=== PATIENT | female | born 1945 | race Caucasian/White ===

== ENCOUNTER → 2017-01-24 | Outpatient (CLI) | payer MEDICARE, OTHER ==
[2017-01-24 13:15] LABS: FREE T4 1.11 NG/DL (0.76-1.46)
== END ==
LOC: M LAB 11:39
PROVIDERS: ATTEND Internal Medicine Gastroenterology
DX: K58.2 Mixed irritable bowel syndrome (principal)

== ENCOUNTER → 2017-01-25 | Outpatient (REF) | payer MEDICARE, OTHER | LOC: M LAB REF 10:17 | PROVIDERS: ATTEND Internal Medicine Gastroenterology | DX: K58.2 Mixed irritable bowel syndrome (principal) ==

== ENCOUNTER → 2017-02-22 | Outpatient (CLI) | payer MEDICARE, OTHER ==
[~2017-02-22] VITALS: Ht 160 cm; Wt 51.3 kg
[~2017-02-22] MED LIST: ALLE180T33 PO; CITRTAB13 PO; GLUC500T53 PO; L-ME1TAB PO; LEVO25TA5 PO; MULTCAP11 PO; NS 1,000 ML IV ONE; PROPOFOL 200 MG/20 ML VIAL As Ordered ONE; SING10TA32 PO; VITA1CAP7 PO; [UNRECOGNIZED DRUG - OTHER] PO
--- NOTE | 2017-02-22 10:42 | ROOR ---
Patient Name: Irina Metz Procedure Date: 02/22/2017 9:55 AM Date of : 1945 Age: 71 Room: [facility] Gender: Female Note Status: Finalized Procedure: Colonoscopy Indications: Follow-up of irritable bowel syndrome, Change in bowel habits, Incidental constipation noted, Incidental diarrhea noted Providers: Aaron SAHU MD Referring MD: CURTIS MCNEAL MD Requesting Provider: Medicines: Monitored Anesthesia Care Complications: No immediate complications. Procedure: Pre-Anesthesia Assessment: - The heart rate, respiratory rate, oxygen saturations, blood pressure, adequacy of pulmonary ventilation, and response to care were monitored throughout the procedure. The Colonoscope was introduced through the anus and advanced to the cecum, identified by appendiceal orifice and ileocecal valve. The colonoscopy was performed without difficulty. The patient tolerated the procedure well. The quality of the bowel preparation was good. Findings: The perianal and digital rectal examinations were normal. (Exam: Complete, Prep: Good or Excellent.) A frond-like/villous and polypoid non-obstructing medium-sized mass was found in the proximal ascending colon. The mass was non-circumferential. The mass measured four cm in length. In addition, its diameter measured thirty mm. The polyp was removed with a piecemeal technique using a hot snare. Polyp resection was incomplete, and the resected tissue was partially retrieved. The exam was otherwise without abnormality on direct and retroflexion views. Biopsies for histology were taken with a cold forceps from the entire colon for evaluation of microscopic colitis. Impression: - Rule out malignancy, 3x4 cm polypoid tumor in the proximal ascending colon. Snare cautery piecemeal resection attempted. About 1/3 of this lesion was resected. INCOMPLETE resection. - The examination was otherwise normal on direct and retroflexion views. - Biopsies were taken with a cold forceps from the entire colon for evaluation of microscopic colitis. Recommendation: - Await pathology results. - If the pathology report is malignant, then refer to a surgeon. - (If pathology is benign, consideration may be given to serial colonoscopy with repeat attempts of piecemeal resection over time. I do note some mucosal infiltration of the fold under the lesion, and surgery may still be a better option.--I will discuss with you on follow up appointment in my office). Aaron Sahu MD Aaron SAHU MD 02/22/2017 10:42:13 AM This report has been signed electronically. Number of Addenda: 0 Note Initiated On: 02/22/2017 9:55 AM Estimated Blood Loss: Estimated blood loss: none.
[2017-02-22 10:55] VITALS: BP 117/66
== END | disposition home or self-care (01) ==
LOC: M OPP 08:38
PROVIDERS: ATTEND Internal Medicine Gastroenterology
DX: K58.9 Irritable bowel syndrome, unspecified (principal); R19.4 Change in bowel habit; C18.9 Malignant neoplasm of colon, unspecified; E78.5 Hyperlipidemia, unspecified; R19.7 Diarrhea, unspecified; K59.00 Constipation, unspecified; Z78.0 Asymptomatic menopausal state; J45.909 Unspecified asthma, uncomplicated; Z88.8 Allergy status to other drugs, medicaments and biological substances; Z88.0 Allergy status to penicillin; Z88.2 Allergy status to sulfonamides; Z80.52 Family history of malignant neoplasm of bladder; Z79.899 Other long term (current) drug therapy

== ENCOUNTER → 2017-02-25 | Outpatient (CLI) | payer MEDICARE, OTHER ==
[~2017-02-25] MED LIST changes: -NS 1,000 ML IV ONE; -PROPOFOL 200 MG/20 ML VIAL As Ordered ONE
[2017-02-25 08:58] LABS: BASO % 0.5 % (0.0-1.0); EOS # 0.1 K/mm3 (0.0-0.50); EOS % 2.5 % (0.0-3.0); LARGE UNSTAINED CELL # 0.1 K/mm3 (0.0-0.4); LARGE UNSTAINED CELL % 1.5 % (0.0-4.0); LYMPH # 1.3 K/mm3 (1.5-4.5); LYMPH % 24.5 % (24.0-44.0); MEAN CORPUSCULAR HEMOGLOBIN 33.8 pg (27.0-33.0); MEAN CORPUSCULAR HGB CONC 32.8 g/dl (32.0-36.5); MEAN CORPUSCULAR VOLUME 103.1 fl (80.0-96.0); MONO # 0.3 K/mm3 (0.0-0.8); MONO % 6.1 % (0.0-5.0); NEUTROPHILS # 3.4 K/mm3 (1.8-7.7); NEUTROPHILS % 64.8 % (36.0-66.0); PLATELET COUNT, AUTOMATED 246 k/mm3 (150-450); RED CELL DISTRIBUTION WIDTH 12.2 % (11.5-14.5); WHITE BLOOD COUNT 5.2 K/mm3 (4.0-10.0)
[2017-02-25 10:08] LABS: ALBUMIN 3.7 GM/DL (3.2-5.2); ALBUMIN/GLOBULIN RATIO 1.09 (1.00-1.93); ALKALINE PHOSPHATASE 84 U/L (45-117); ALT/SGPT 19 U/L (12-78); ANION GAP 7 MEQ/L (8-16); AST/SGOT 16 U/L (15-37); BILIRUBIN,TOTAL 0.4 MG/DL (0.2-1.0); BLOOD UREA NITROGEN 12 MG/DL (7-18); CALCIUM LEVEL 8.9 MG/DL (8.8-10.2); CARBON DIOXIDE LEVEL 29 MEQ/L (21-32); CHLORIDE LEVEL 107 MEQ/L (98-107); CHOLESTEROL LEVEL 262 MG/DL (<200); CREATININE FOR GFR 0.87 MG/DL (0.55-1.02); FREE T4 1.14 NG/DL (0.76-1.46); GLOMERULAR FILTRATION RATE > 60.0 (>39); GLUCOSE, FASTING 89 MG/DL (83-110); POTASSIUM SERUM 3.8 MEQ/L (3.5-5.1); SODIUM LEVEL 143 MEQ/L (136-145); TOTAL PROTEIN 7.1 GM/DL (6.4-8.2); TRIGLYCERIDES LEVEL 86 MG/DL (<150)
== END ==
LOC: M LAB 08:21
PROVIDERS: ATTEND Emergency Medicine
DX: Z00.00 Encounter for general adult medical examination without abnormal findings (principal); E03.9 Hypothyroidism, unspecified; M79.7 Fibromyalgia

== ENCOUNTER → 2017-03-15 | Outpatient (CLI) | payer MEDICARE, OTHER ==
[~2017-03-15] MED LIST changes: +TURM500C3 PO
--- NOTE | 2017-03-15 19:56 | ECGEPIP ---
Stationary ECG Study [facility] Test Date: 2017-03-15 Pat Name: NATHANIEL MOULTON Department: Room: - Gender: F [employer] [place]: : 1945 Requested By: Zaid Denney Order Number: [id number] Reading MD: Aaron Donis Measurements Intervals [place] Rate: 70 P: 42 MA: 119 QRS: 73 QRSD: 84 T: 76 QT: 370 QTc: 400 Interpretive Statements SINUS RHYTHM WITH SHORT MA INTERVAL No prior ECG available for comparison at the time of interpretation. Electronically Signed On 03-15-2017 19:56:08 EDT by Aaron Donis
== END ==
LOC: M EKG 09:57
PROVIDERS: ATTEND Anesthesiology
DX: Z01.818 Encounter for other preprocedural examination (principal); J45.909 Unspecified asthma, uncomplicated; K58.9 Irritable bowel syndrome, unspecified; G25.81 Restless legs syndrome; E78.00 Pure hypercholesterolemia, unspecified

== ENCOUNTER 2017-03-21 07:30 | Inpatient (IN) | payer MEDICARE, OTHER ==
--- NOTE | 2017-03-20 15:24 | HPE ---
DATE OF ADMISSION: 03/21/2017 ADMITTING DIAGNOSIS: Adenocarcinoma of the proximal ascending colon. HISTORY OF PRESENT ILLNESS: The patient is a very pleasant 71-year-old woman who had undergone a colonoscopy by Dr. Moore on 02/22/2017. This was reported for irritable bowel syndrome with a change in her bowel habits with some incidental constipation and some incidental diarrhea. At her colonoscopy, she was found to have a frond like/villous and polypoid nonobstructing medium sized mass in the proximal ascending colon. The mass was estimated at 4 cm in length. Portions of this mass were resected and portions of the resected tissue were recovered. Her pathology revealed fragments of adenocarcinoma, moderately differentiated, invading at least to the submucosa, in a background of villous adenoma. She was referred to me for further treatment. She was seen in the office on March 05 and is admitted now to undergo a laparoscopic right hemicolectomy. The patient reports that there is no family history of colorectal cancer with possible exception of a half-sister who may have had a colon malignancy, but her history is unclear. The patient denies any rectal bleeding. She is having no abdominal pain acutely, but has had some right lower quadrant discomfort for years. ALLERGIES: The patient reports allergies to PENICILLIN, SULFA, SELDINE, VERAPAMIL, BECONASE AQ and OPIOIDS. MEDICATIONS: Include: - levothyroxine 25 mcg by mouth daily - cholecalciferol 5000 units by mouth daily - Citracal maximum 315/250 mg one tablet by mouth twice daily - curcuma longa (tumeric extra) 500 mg capsules daily - fexofenadine 180 mg by mouth daily - glucosamine hydrochloride 500 mg tablets, one by mouth weekly - L-methylfolate calcium 15 mg tablets, one by mouth daily - montelukast 10 mg by mouth daily - multivitamin one capsule by mouth twice daily - PhytoCort one tablet by mouth daily MEDICAL HISTORY: Significant for asthma. She has history of irritable bowel syndrome. 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 She has a history of hypercholesterolemia. She has recurrent history of colon cancer and has hypothyroid. SURGICAL HISTORY: Significant for a section in 1979. She has had shoulder surgery on the left in 2003 and shoulder surgery on the right in 2005. She underwent a colonoscopy more than 10 years ago and then again recently in February 2017. FAMILY HISTORY: The patient's father had Mary's granulomatosis. The patient's mother suffered from Alzheimer's disease. SOCIAL HISTORY: The patient is a nonsmoker and she denies any alcohol use. She is , but does not wish to burden her with her diagnosis of cancer and is planning to proceed with the surgery and only let him know after the fact. PRIMARY CARE PROVIDER: Her regular physician is Dr. Shaw Velasquez. REVIEW OF SYSTEMS: The patient denies any chills or fever or any weight gain or weight loss. She denies any symptoms of blurred vision or double vision. She has no history of seizure, stroke or TIA. She has had no chest pain or palpitations. She denies any history of cough, wheezing or sputum production. She has had some intermittent diarrhea and sometimes has constipation. She denies any rectal bleeding. She has had no dysuria or hematuria. She denies any significant bone or joint issues at this time. There is no history of deep venous thrombosis (DVT) or pulmonary embolism. She denies any history of anxiety or depression. PHYSICAL EXAMINATION: Reveals a height of 63 inches with a weight of approximately 53 kg, yielding a BMI of approximately 21. The patient is alert, oriented and cooperative. Skin: Is warm and dry. Sclerae are anicteric. Mucous membranes are moist. Neck is supple without mass or bruit. Heart: Exam shows a regular rate and rhythm. The lungs are clear to auscultation bilaterally. The abdomen is thin, flat, soft, and nontender. No masses appreciated. She has an old scar across the suprapubic area. There is no sign of hernia. Her rectal exam is deferred, given her recent colonoscopy reporting a negative for rectal examination. LABORATORY: Laboratory studies on February 25 the patient had some blood work done. She had a CBC showing a white count of 5.2 with a hemoglobin of 13, hematocrit of 41% and a platelet count of 246,000. The differential count was normal. Chemistry profile showed normal electrolytes with BUN of 12, creatinine 0.87 and glucose of 89. A TSH was 1.76 and a free T4 was 1.14. The patient has not had any recent imaging studies. IMPRESSION: 1. Adenocarcinoma arising in a villous adenoma of the ascending colon. 2. Asthma. 3. Hypercholesterolemia. 4. Hypothyroidism. 5. Irritable bowel syndrome. PLAN: The patient is being admitted on March 21 to undergo a laparoscopic right hemicolectomy. The patient is to perform and antibiotic and mechanical bowel preparation on March 20. This would include use of Suprep with neomycin and Flagyl for antibiotic coverage. She will receive a dose of Invanz preoperatively. She will also receive a by mouth dose of Entereg preoperatively. She will have a Byrne catheter placed in the operating room. Thromboembolism deterrents (TEDs) and sequentials will be used intraoperatively for deep venous thrombosis (DVT) prophylaxis. The patient was counseled regarding the surgery for a laparoscopic right hemicolectomy. She was counseled regarding the nature of the procedure. Risks include, but are not limited to bleeding, infection, scarring, adverse drug reaction, need for further surgery, injury to internal organs, hernia formation, and anastomotic leak. The patient had an opportunity to ask questions. She was counseled that her hospital stay would likely be in the two to five day range. She expressed a desire to proceed with the surgery and will present on March 21 for her procedure.
[~2017-03-21] VITALS: Ht 160 cm; Wt 52.2 kg
[2017-03-21] MEDS ORDERED: LR 1,000 ML IV SCH ×2 (09:15→14:45)
[2017-03-21] MEDS ORDERED: LR 1,000 ML IV ONE (09:15)
[2017-03-21] MEDS ORDERED: ERTAPENEM SODIUM 1 GM in NS MINI-BAG PLUS 50 ML IV ONE (10:00)
[2017-03-21] MEDS ORDERED: ALVIMOPAN 12 MG CAPSULE (ENTEREG) PO ONE (10:00)
[2017-03-21] MEDS ORDERED: BUPIVACAINE HCL 0.25% 30 ML VIAL As Ordered ONE (10:46)
[2017-03-21] MEDS ORDERED: ROCURONIUM BROMIDE 50 MG/5 ML VIAL As Ordered ONE ×2 (11:49→12:07)
[2017-03-21] MEDS ORDERED: LIDOCAINE 2% INJ 100 MG/5 ML SDV (FOR ANES.) As Ordered ONE (11:49)
[2017-03-21] MEDS ORDERED: PROPOFOL 200 MG/20 ML VIAL As Ordered ONE (11:49)
[2017-03-21] MEDS ORDERED: fentaNYL 250 MCG/5 ML INJECTION (J3010) As Ordered ONE (11:49)
[2017-03-21] MEDS ORDERED: MIDAZOLAM INJ 2 MG/2 ML VIAL (J2250) As Ordered ONE (11:49)
[2017-03-21] MEDS ORDERED: PHENYLephrine HCL 500 MCG/5 ML (100MCG/ML) SYRINGE (J2370) As Ordered ONE ×2 (12:00→13:20)
[2017-03-21] MEDS ORDERED: DESFLURANE 240 ML INHALANT As Ordered ONE (12:48)
[2017-03-21] MEDS ORDERED: HYDROmorphone HCL 2 MG/ML 1ML VIAL (J1170) As Ordered ONE (12:54)
[2017-03-21] MEDS ORDERED: GLYCOPYRROLATE INJ 0.2 MG/ML 2 ML VIAL As Ordered ONE (13:57)
[2017-03-21] MEDS ORDERED: NEOSTIGMINE 1MG/ML 5 ML SYRINGE (J2710) As Ordered ONE (13:57)
[2017-03-21] MEDS ORDERED: IBUPROFEN 600 MG TAB PO PRN (14:30)
[2017-03-21] MEDS ORDERED: ACETAMINOPHEN TAB 650MG DOSE (2X325MG) PO PRN (14:30)
[2017-03-21] MEDS ORDERED: PERCOCET 5MG/325MG TAB PO PRN (14:45)
[2017-03-21] MEDS ORDERED: METOCLOPRAMIDE INJ 10MG/2ML VIAL (J2765) IV PRN (14:45)
[2017-03-21] MEDS ORDERED: fentaNYL 100 MCG/2 ML INJECTION (J3010) IV PRN (14:45)
[2017-03-21] MEDS ORDERED: ONDANSETRON 4MG/2ML VIAL (J2405) IV PRN (14:45)
[2017-03-21 15:50] VITALS: BP 116/55
[2017-03-21] MEDS ORDERED: ONDANSETRON 4MG/2ML VIAL (J2405) As Ordered ONE (15:57)
[2017-03-21] MEDS: ONDANSETRON 4MG/2ML VIAL (J2405) IV PRN ×2 (16:00→23:11)
[2017-03-21] MEDS: LR 1,000 ML IV SCH (16:05)
[2017-03-21 16:20] VITALS: BP 116/56
[2017-03-21 16:50] VITALS: BP 110/53
[2017-03-21] MEDS: METOCLOPRAMIDE INJ 10MG/2ML VIAL (J2765) IV PRN (17:25)
[2017-03-21 17:50] VITALS: BP 102/50
[2017-03-21 18:50] VITALS: BP 105/55
[2017-03-21] MEDS: ALVIMOPAN 12 MG CAPSULE (ENTEREG) PO SCH (20:08)
--- NOTE | 2017-03-21 21:46 | RO ---
DATE OF PROCEDURE: 03/21/2017 PREOPERATIVE DIAGNOSIS: Ascending colon carcinoma. POSTOPERATIVE DIAGNOSIS: Ascending colon carcinoma. OPERATIVE PROCEDURE: Laparoscopic right hemicolectomy. SURGEON: Arben Hawkins MD POULTRY HELPER: Dr. Payan ANESTHESIA: General. INDICATIONS FOR PROCEDURE: The patient is a 71-year-old woman who had undergone a recent colonoscopy for some complaints of diarrhea and occasional constipation. It had also been greater than 10 years since her most recent prior colonoscopy. She was found to have a lesion in the proximal ascending colon. Portions of this were removed and revealed foci of adenocarcinoma in a background of villous adenoma. The patient is now admitted to undergo a laparoscopic right hemicolectomy. OPERATIVE PROCEDURE: The patient was placed supine on the operating table. She was placed under general endotracheal anesthesia. TEDs and sequentials were utilized. A Byrne catheter was inserted. The patient's abdomen was prepped and draped in a sterile fashion. 0.25% Marcaine was infiltrated. A short infraumbilical midline incision was made. This was deepened through the fascia and the peritoneum was opened bluntly. A Hannah cannula was inserted and the abdomen was insufflated with carbon dioxide gas. Initial examination showed a normal-appearing liver. Visualized portions of the small and large bowel appeared normal. A 5 mm trocar was placed in the right lower quadrant just to the right of the midline and a second 5 mm trocar was placed in the left lower quadrant. Graspers were inserted. The patient was rolled to the left and tilted to a Trendelenburg position. The omentum was pulled away from the cecum and ascending colon. Inspection revealed that she had a very redundant transverse colon. There were some adhesions of the ascending colon to the anterior abdominal wall. Using the Harmonic scalpel, the adhesions of the right colon to the anterior abdominal wall were divided. The lateral attachments of the cecum and ascending colon were then divided. The colon was rotated and mobilized medially through the avascular plane. The appendix and terminal ileum were divided. The colon was mobilized all the way up to the most distal ascending colon. I then selected a point in the proximal transverse colon for division of the bowel. This point was selected to leave the middle colic vessels intact. Some of the omentum was elevated off of the transverse colon. A small portion was left attached on the right and this was divided. The colon mesentery was opened and the colon was transected with two firings of the [place] stapler with a green load. The colon mesentery was then divided down to its base using the Harmonic scalpel. The dissection then moved to the right completely exposing the retroperitoneal portion of the duodenum. The attachments beneath the liver were divided and the hepatic flexure reflected inferiorly. At this point, the mesentery of the terminal ileum was opened. Approximately 5-7 cm of the terminal ileum was left attached to the colon. The terminal ileum was divided with the [place] stapler. The division of the ileal mesentery was carried distally and the cecum and appendix were mobilized anteriorly from the retroperitoneum. The right colon mesentery was then divided medially. The ileocolic vessel was divided carefully using the Harmonic scalpel with no blood loss. The final attachments of the right colon mesentery were divided and the specimen was freed. Inspection revealed no evidence of significant bleeding in the operative area. The terminal ileum and distal transverse colon appeared to be quite mobile to facilitate an anastomosis. Graspers were therefore placed through the trocar sites with one holding the end of the terminal ileum, one holding the specimen and the third holding the end of the transverse colon. I would note that the third 5 mm trocar was placed in the left upper quadrant during the course of dissection to provide an additional grasper during mobilization of transverse colon. The abdomen was deflated. The Hannah port was removed and the skin incision at the infraumbilical site was extended to 4-5 cm in length. A Mobius retractor was placed. The specimen was delivered and initially set aside for later inspection. The end of the terminal ileum and transverse colon were brought through the retractor. A stapled anastomosis was performed with a linear cutter 55 stapler and firing of the [place] stapler with a green load. The anastomosis was reinforced with multiple simple inverting sutures of #3-0 Vicryl. The anastomosis was irrigated. There was no bleeding and no sign of leak. This was then reduced into the abdomen. The Mobius retractor was removed. At this point, the surgical team all changed gown and gloves and brought in the set of sterile closing instruments. The peritoneum of the infraumbilical incision was closed with a running suture of #0 chromic. The fascia was closed with interrupted simple sutures of #1 Vicryl. The abdomen was then reinflated. Some small bowel that was positioned posterior to the anastomosis was pulled out from beneath the anastomosis to allow this to lie against the retroperitoneum. There was no sign of bleeding. The right side of the abdomen was inspected and there was no sign of any bleeding. The patient was placed in a flat position and the abdomen was deflated. The remaining trocars were removed. The incisions were all closed with buried Vicryl sutures and Steri-Strips. Light dressings were applied. The patient tolerated the procedure well without apparent complication. The surgical specimen was opened off the field. This revealed an approximately 3-4 cm long x 1 cm wide raised irregular area in the proximal ascending colon. This appeared to have two puckered area and it was unclear if these represented healing areas of her biopsy or whether these might represent areas of cancer. The specimen was placed in formalin for transfer to pathology. The patient was awakened in the operating room, extubated and moved to the recovery room in stable condition.
[2017-03-21 22:00] VITALS: BP 105/55
[2017-03-21] MEDS: ENOXAPARIN 40 MG/0.4 ML SYRINGE (J1650) SC SCH (23:00)
[2017-03-22 02:00] VITALS: BP 116/56
[2017-03-22] MEDS: METOCLOPRAMIDE INJ 10MG/2ML VIAL (J2765) IV PRN ×3 (02:43→19:13)
[2017-03-22] MEDS: LR 1,000 ML IV SCH ×2 (02:51→17:17)
[2017-03-22 06:00] VITALS: BP 111/54
[2017-03-22] MEDS: LEVOTHYROXINE 0.025 MG TAB (25 MCG) PO SCH (06:43)
[2017-03-22 10:00] VITALS: BP 121/59
[2017-03-22] MEDS: ALVIMOPAN 12 MG CAPSULE (ENTEREG) PO SCH ×2 (10:01→21:32)
[2017-03-22] MEDS: FEXOFENADINE 60 MG TAB PO SCH (10:01)
[2017-03-22] MEDS: ONDANSETRON 4MG/2ML VIAL (J2405) IV PRN (10:01)
[2017-03-22 13:25] VITALS: BP 138/67
[2017-03-22 18:00] VITALS: BP 121/58
[2017-03-22 22:00] VITALS: BP 124/60
[2017-03-22] MEDS: ENOXAPARIN 40 MG/0.4 ML SYRINGE (J1650) SC SCH (23:00)
[2017-03-23] VITALS (7 sets, daily range): BP systolic 112–135; BP diastolic 56–72
[2017-03-23] MEDS: METOCLOPRAMIDE INJ 10MG/2ML VIAL (J2765) IV PRN (00:41)
[2017-03-23] MEDS: LEVOTHYROXINE 0.025 MG TAB (25 MCG) PO SCH (05:42)
[2017-03-23] MEDS: ALVIMOPAN 12 MG CAPSULE (ENTEREG) PO SCH (09:00)
[2017-03-23] MEDS: FEXOFENADINE 60 MG TAB PO SCH (09:57)
[2017-03-24 06:00] VITALS: BP 112/56
[2017-03-24] MEDS: LEVOTHYROXINE 0.025 MG TAB (25 MCG) PO SCH (06:03)
[2017-03-24] MEDS: FEXOFENADINE 60 MG TAB PO SCH (08:49)
[2017-03-24 10:00] VITALS: BP 126/57
== END 2017-03-24 12:17 | disposition home or self-care (01) | DRG 330 ==
LOC: M OR 08:55 → M MSPAV 15:41
PROVIDERS: ADMIT Surgery; ATTEND Surgery
PROC: 0DBL4ZZ Excision of Transverse Colon, Percutaneous Endoscopic Approach (ICD-10-PCS; 2017-03-21)
PROC: 0DBK4ZZ Excision of Ascending Colon, Percutaneous Endoscopic Approach (ICD-10-PCS; principal; 2017-03-21 10:40)
DX: C18.2 Malignant neoplasm of ascending colon (principal); E72.12 Methylenetetrahydrofolate reductase deficiency; K58.9 Irritable bowel syndrome, unspecified; Z88.0 Allergy status to penicillin; Z88.2 Allergy status to sulfonamides; Z88.8 Allergy status to other drugs, medicaments and biological substances; Z79.899 Other long term (current) drug therapy; J45.909 Unspecified asthma, uncomplicated; E03.9 Hypothyroidism, unspecified; E78.00 Pure hypercholesterolemia, unspecified

== ENCOUNTER → 2017-04-19 | Outpatient (REF) | payer MEDICARE, OTHER ==
[2017-04-19 13:28] LABS: INR 0.89
== END ==
LOC: M LAB REF 12:48
PROVIDERS: ATTEND Internal Medicine Medical Oncology
DX: C18.9 Malignant neoplasm of colon, unspecified (principal)

== ENCOUNTER → 2017-04-24 | Outpatient (CLI) | payer MEDICARE, OTHER ==
--- NOTE | 2017-04-25 12:19 | REP ---
PET/CT: HISTORY: Initial staging colon carcinoma. The right hemicolectomy done in 03/22/2017 showed moderately differentiated adenocarcinoma extending into the pericolonic adipose tissue. COMPARISONS: No comparison study. TECHNIQUE: 1 hour 28 minutes following the intravenous injection of a 10.5 mCi dose of F-18 FDG, three-dimensional PET scintigraphy is acquired from the skull base to the proximal thighs. Triplanar noncontrast CT scanning is acquired through the same anatomic range for attenuation correction, and image registration with scan parameters optimized to minimize radiation exposure to the patient. PET scintigraphy and CT datasets were fused and displayed on a workstation with multiplanar and projection display capability. PET/CT FINDINGS: There is a linear area of low level mildly hypermetabolic uptake in the anterior abdominal wall incision below the level of the umbilicus. Maximum SUV value in this region is 3.3. This may reflect postoperative inflammation. No other abnormal abdominal or pelvic hypermetabolic uptake is seen. No hepatic focus is seen. A suture line is seen in the right colon. No abnormal hypermetabolic uptake is seen within the chest. No pulmonary nodule or pulmonary hypermetabolic uptake is appreciated. Head and neck soft tissues are unremarkable. No skeletal hypermetabolic uptake is seen. IMPRESSION: Mild zone of linear hypermetabolic uptake in the infraumbilical abdominal wall midline in the laparotomy incision. This is most compatible with postoperative inflammation. Otherwise negative PET scintigraphy. Signed by Alex Lamb MD 04/25/2017 05:14 P
== END ==
LOC: M PLARAD 07:34
PROVIDERS: ATTEND Internal Medicine Medical Oncology
DX: C18.9 Malignant neoplasm of colon, unspecified (principal)
CPT/HCPCS: 78815; 88300; A9552

== ENCOUNTER → 2017-04-24 | Outpatient (REF) | payer MEDICARE, OTHER | LOC: M LAB REF 09:00 | PROVIDERS: ATTEND Internal Medicine Medical Oncology | DX: C18.9 Malignant neoplasm of colon, unspecified (principal) ==

== ENCOUNTER → 2017-04-26 | Outpatient (CLI) | payer MEDICARE, OTHER ==
[~2017-04-26] MED LIST changes: +ISOVUE-370 76% 100ML VIAL (Q9967) As Ordered ONE
--- NOTE | 2017-04-26 17:10 | REP ---
Clinical: Colon cancer for staging. Technique: Axial contrast enhanced images from the thoracic inlet to the upper abdomen using 100 ml Isovue 370 intravenous contrast material with coronal and sagittal re-formations. Findings: The bilateral lung rondon are well-aerated, symmetric and clear. No pulmonary parenchymal consolidation, nodule or mass lesion. No pleural effusion/reaction or pneumothorax. Tracheobronchial tree is patent. No axillary, hilar, or mediastinal adenopathy. Mediastinum demonstrates normal thoracic aorta, pulmonary vasculature and heart/pericardium. The surrounding musculoskeletal structures without focal osseous abnormality. Limited evaluation of the upper abdomen demonstrates normal bilateral adrenal glands. Impression: Normal contrast enhanced chest CT. No acute mediastinal or pleuroparenchymal process. Signed by Elliott Arguelles MD 04/26/2017 05:01 P
== END ==
LOC: M RAD 16:01
PROVIDERS: ATTEND Internal Medicine Medical Oncology
DX: C18.9 Malignant neoplasm of colon, unspecified (principal)
CPT/HCPCS: 71260; Q9967

== ENCOUNTER → 2017-07-30 | Outpatient (REF) | payer MEDICARE, OTHER ==
[~2017-07-30] MED LIST changes: -ISOVUE-370 76% 100ML VIAL (Q9967) As Ordered ONE
== END ==
LOC: M LAB REF 17:33
PROVIDERS: ATTEND Internal Medicine Medical Oncology
DX: C18.9 Malignant neoplasm of colon, unspecified (principal)

== ENCOUNTER → 2017-10-30 | Outpatient (REF) | payer MEDICARE, OTHER ==
[2017-11-01 17:02] LABS: CARCINOEMBRYONIC ANTIGEN 1.1 NG/ML (<2.5)
== END ==
LOC: M LAB REF 18:48
DX: C18.9 Malignant neoplasm of colon, unspecified (principal)
CPT/HCPCS: 82378

== ENCOUNTER → 2017-11-04 | Outpatient (CLI) | payer MEDICARE, OTHER ==
[~2017-11-04] MED LIST changes: -ALLE180T33 PO; -CITRTAB13 PO; +GASTROGRAFIN SOLUTION 30ML (Q9963) As Ordered; -GLUC500T53 PO; +ISOVUE-370 76% 100ML VIAL (Q9967) As Ordered; -L-ME1TAB PO; -LEVO25TA5 PO; -MULTCAP11 PO; -SING10TA32 PO; -TURM500C3 PO; -VITA1CAP7 PO; -[UNRECOGNIZED DRUG - OTHER] PO
== END ==
LOC: M RAD 10:47
DX: C18.9 Malignant neoplasm of colon, unspecified (principal); N83.201 Unspecified ovarian cyst, right side
CPT/HCPCS: Q9963

== ENCOUNTER → 2018-02-11 | Outpatient (REF) | payer MEDICARE, OTHER ==
[2018-02-11 14:32] LABS: CARCINOEMBRYONIC ANTIGEN 1.1 NG/ML (<2.5)
== END ==
LOC: M LAB REF 13:36
DX: C18.2 Malignant neoplasm of ascending colon (principal)
CPT/HCPCS: 82378

== ENCOUNTER → 2018-02-13 | Outpatient (CLI) | payer MEDICARE, OTHER ==
[2018-02-13 11:41] LABS: FREE T4 0.96 NG/DL (0.76-1.46)
== END ==
LOC: M LAB 10:46
DX: E03.9 Hypothyroidism, unspecified (principal)
CPT/HCPCS: 84443

== ENCOUNTER → 2018-03-13 | Outpatient (CLI) | payer MEDICARE, OTHER ==
[2018-03-13 13:39] LABS: VITAMIN B12 LEVEL 727 PG/ML
[2018-03-13 13:40] LABS: FOLATE > 24.0 NG/ML
[2018-03-15 00:08] LABS: ANTI-PARIETAL CELL ANTIBODY 31.9 Units (0.0-20.0)
== END ==
LOC: M LAB 12:35
DX: C18.2 Malignant neoplasm of ascending colon (principal)
CPT/HCPCS: 82746

== ENCOUNTER 2018-03-27 06:41 | Day surgery (SDC) | payer MEDICARE, OTHER ==
[2018-03-27] MEDS ORDERED: NS 1,000 ML IV (07:00)
[2018-03-27] MEDS ORDERED: PROPOFOL 200 MG/20 ML VIAL As Ordered (08:11)
[2018-03-27] MEDS ORDERED: LIDOCAINE 2% INJ 100 MG/5 ML SDV (FOR ANES.) As Ordered (08:11)
== END 2018-03-27 08:32 | disposition home or self-care (01) ==
LOC: M OPP 06:41
DX: Z98.0 Intestinal bypass and anastomosis status (principal); K64.9 Unspecified hemorrhoids; E78.00 Pure hypercholesterolemia, unspecified; J45.909 Unspecified asthma, uncomplicated; E78.1 Pure hyperglyceridemia; K58.9 Irritable bowel syndrome, unspecified; G25.81 Restless legs syndrome; E07.9 Disorder of thyroid, unspecified; Z79.899 Other long term (current) drug therapy; Z88.0 Allergy status to penicillin; Z88.5 Allergy status to narcotic agent; Z88.8 Allergy status to other drugs, medicaments and biological substances; Z78.0 Asymptomatic menopausal state; Z91.89 Other specified personal risk factors, not elsewhere classified
CPT/HCPCS: 45380

== ENCOUNTER → 2018-04-28 | Outpatient (REF) | payer MEDICARE, OTHER ==
[2018-04-29 09:55] LABS: CARCINOEMBRYONIC ANTIGEN 0.8 NG/ML (<2.5)
== END ==
LOC: M LAB REF 18:52
DX: C18.2 Malignant neoplasm of ascending colon (principal)
CPT/HCPCS: 82378

== ENCOUNTER → 2018-04-29 | Outpatient (CLI) | payer MEDICARE, OTHER | LOC: M RAD 14:18 | DX: C18.9 Malignant neoplasm of colon, unspecified (principal); Z90.49 Acquired absence of other specified parts of digestive tract; N83.201 Unspecified ovarian cyst, right side; N83.202 Unspecified ovarian cyst, left side | CPT/HCPCS: Q9963 ==

== ENCOUNTER → 2018-11-11 | Outpatient (CLI) | payer MEDICARE, OTHER ==
[~2018-11-11] MED LIST changes: +ALLE180T33 PO; +CITRTAB13 PO; -GASTROGRAFIN SOLUTION 30ML (Q9963) As Ordered; +GLUC500T53 PO; -ISOVUE-370 76% 100ML VIAL (Q9967) As Ordered; +L-ME1TAB PO; +LEVO25TA5 PO; +MULTCAP11 PO; +PRED50TA PO; +PRIL20TA2 PO; +SING10TA32 PO; +TURM500C3 PO; +VITA1CAP7 PO; +[UNRECOGNIZED DRUG - OTHER] PO
--- NOTE | 2018-11-11 13:40 | REP ---
CT CHEST WITHOUT CONTRAST: HISTORY: Stage II colon carcinoma. Comparison chest CT study April 29, 2018. CT FINDINGS: There is no evidence of pleural or pericardial effusion. No hilar or mediastinal mass or adenopathy has developed. No new pulmonary nodule is seen. No bony destructive lesion is appreciated. IMPRESSION: No active disease. Electronically Signed by Alex Lamb MD 11/11/2018 05:34 P
--- NOTE | 2018-11-11 13:51 | REP ---
CT ABDOMEN AND PELVIS WITHOUT IV OR ORAL CONTRAST: HISTORY: Stage II colon carcinoma[address] Comparison [address] study is from April 29, 2018. CT FINDINGS: Preliminary digital automotive specialty technician radiograph shows an unremarkable bowel gas pattern. The liver remains normal in size, homogeneous in texture. No focal liver lesion is seen. Spleen is unremarkable. No adrenal lesion is observed. No pancreatic abnormality is seen. The gallbladder is small and contracted in appearance. No upper abdominal adenopathy is appreciated. No retroperitoneal adenopathy is seen. The patient status post right hemicolectomy and anastomotic sutures are again noted. No evidence of bowel obstruction or bowel mass lesion. The uterus, urinary bladder are unremarkable. No adnexal pathology is seen. There is a small cystic area in the left ovary measuring 19 mm. A right ovarian cystic area is seen measuring 31 mm. These are similar to the prior study April 29, 2018. No pelvic adenopathy is seen. IMPRESSION: Status post right hemicolectomy changes. Small cystic areas in each ovary again noted. Otherwise no acute abnormality. Electronically Signed by Alex Lamb MD 11/11/2018 05:35 P
== END ==
LOC: M RAD 10:21
PROVIDERS: ATTEND Internal Medicine Medical Oncology
DX: C18.9 Malignant neoplasm of colon, unspecified (principal)

== ENCOUNTER → 2018-12-30 | Outpatient (CLI) | payer MEDICARE, OTHER ==
[2018-12-30 15:01] LABS: FREE T4 1.08 NG/DL (0.76-1.46); THYROID STIMULATING HORMONE 0.702 uIU/ML (0.358-3.740)
== END ==
LOC: M LAB 13:27
PROVIDERS: ATTEND Physician Assistant Medical
DX: E03.9 Hypothyroidism, unspecified (principal)

== ENCOUNTER → 2019-11-09 | Outpatient (CLI) | payer MEDICARE, OTHER ==
[~2019-11-09] MED LIST changes: +D-3-50003 PO; +MULT1TAB8 PO; -VITA1CAP7 PO; +[UNRECOGNIZED DRUG - CODE] EX
--- NOTE | 2019-11-09 13:12 | REP ---
CT of the chest without IV contrast: Comparison is 11/11/2018. There are no lung masses or nodules. There are no infiltrates or pleural effusions. There is no mediastinal or axillary lymphadenopathy. The study is insensitive for hilar adenopathy in the absence of IV contrast. The unenhanced thoracic aorta is unremarkable. Cardiac size is normal. There is a stable 7 mm benign calcification posteromedially in the right breast, unchanged. This calcification is also unchanged from the mammogram of 09/05/2011. Impression: No evidence of metastatic disease . No lymphadenopathy. No acute infiltrate or effusion. No change from the prior study. Electronically Signed by Cristiano Winslow MD 11/09/2019 01:03 P
--- NOTE | 2019-11-09 13:16 | REP ---
CT of the abdomen and pelvis without IV or bowel contrast: Comparison is 11/11/2018. The visualized lower lung rondon are unremarkable and unchanged. The unenhanced hepatic parenchyma is homogeneous. No focal hepatic masses are identified, however, the study is insensitive in the absence of IV contrast. The The gallbladder, pancreas and spleen are unremarkable. The adrenals are unremarkable. The kidneys are unremarkable. The abdominal aorta is unremarkable. There is a right hemicolectomy with an anastomotic suture line in the flexure, unchanged. The bowel and mesentery are otherwise unremarkable. Pelvis: The uterus, adnexa and bladder are unremarkable. There is no adenopathy or ascites. The pelvic bowel loops are unremarkable. There are no lytic, blastic or destructive skeletal changes. Impression: There is no evidence of adenopathy or metastatic disease, however, the study is somewhat insensitive in the absence of IV contrast. No change from the prior study. Electronically Signed by Cristiano Winslow MD 11/09/2019 01:07 P
== END ==
LOC: M RAD 10:29
PROVIDERS: ATTEND Nurse Practitioner Family
DX: C18.9 Malignant neoplasm of colon, unspecified (principal)

== ENCOUNTER 2021-05-25 23:42 | Emergency (ER) | payer MEDICARE, OTHER ==
[~2021-05-25] VITALS: Ht 160 cm; Wt 50.0 kg
[~2021-05-25 23:42] MED LIST changes: -CITRTAB13 PO; +CITRTAB16 PO
[2021-05-26] MEDS ORDERED: diazePAM 2 MG TAB PO ONE (03:30)
[2021-05-26] MEDS ORDERED: KETOROLAC 30 MG/ML 1ML VIAL IV ONE (03:30)
--- NOTE | 2021-05-26 03:33 | REPVR ---
PROCEDURE INFORMATION: Exam: CT Head Without Contrast Exam date and time: 05/26/2021 2:25 AM Age: 75 years old Clinical indication: Pain TECHNIQUE: Imaging protocol: Computed tomography of the head without contrast. Radiation optimization: All CT scans at this facility use at least one of these dose optimization techniques: automated exposure control; mA and/or kV adjustment per patient size (includes targeted exams where dose is matched to clinical indication); or iterative reconstruction. COMPARISON: No relevant prior studies available. FINDINGS: Images through the base of the brain and posterior fossa, including the brainstem are slightly degraded by beam hardening artifacts from the adjacent calvarium. There is no evidence of acute intracranial hemorrhage, extra axial fluid collection or hematoma. There is mild global parenchymal volume loss, appropriate for age related involutional change. There is no midline shift or herniation. The ventricles are not dilated. No evidence of pneumocephalus. There are mild periventricular and deep white matter attenuation changes which could be related to microvascular ischemic disease or white matter disease of indeterminate acuity. No CT findings are seen at the current time to suggest changes of acute territorial vascular infarction. Note is made however, that CT changes, may lag clinical findings in acute CVA. If clinically indicated, consideration could be given to MRI with diffusion weighted imaging, due to its greater sensitivity, for early detection of acute ischemic change. Incidental intracranial calcifications are noted. No pericranial scalp hematoma is seen. No acute cranial vault fracture is seen. No fluid is seen within the visualized paranasal sinuses or mastoid air cells. The visualized middle ear cavities are not opacified. IMPRESSION: No evidence of acute territorial major vessel infarct, mass effect, or hemorrhage. Mild white matter changes of indeterminate acuity as discussed above. Age related involutional changes are noted. Electronically signed by: Raymundo Christopher On 05/26/2021 03:32:59 AM
--- NOTE | 2021-05-26 03:37 | REPVR ---
PROCEDURE INFORMATION: Exam: CT Cervical Spine Without Contrast Exam date and time: 05/26/2021 2:25 AM Age: 75 years old Clinical indication: Neck pain TECHNIQUE: Imaging protocol: Computed tomography images of the cervical spine without contrast. Radiation optimization: All CT scans at this facility use at least one of these dose optimization techniques: automated exposure control; mA and/or kV adjustment per patient size (includes targeted exams where dose is matched to clinical indication); or iterative reconstruction. COMPARISON: None Study limitations: Diagnostic evaluation is slightly compromised by metallic streak artifact from the patient's necklace. FINDINGS: Bony mineralization is slightly heterogeneous. Cervical vertebral body heights, posterior cervical alignment and prevertebral soft tissues are within normal limits. The facet joints are not subluxed or dislocated. The atlantodental interval is degenerated but maintained. No acute fracture of the cervical spine is seen. Degenerative changes of the cervical spine are noted with mild to moderate disc space loss, anterior osteophytes, bony sclerosis and endplate irregularities as well as facet arthropathy. Degenerative disc disease is most pronounced at the C5/6 and C6/C7 levels. Facet arthropathy is most pronounced on the right at the C4/5 level. If there are neurologic symptoms, consider further evaluation by MRI. IMPRESSION: No acute fracture or malalignment of the cervical spine. [id number] degenerative changes as discussed above. Electronically signed by: Raymundo Christopher On 05/26/2021 03:36:50 AM
[2021-05-26 05:30] VITALS: BP 133/60
[2021-05-26] MEDS ORDERED: KETO10TAB PO (06:20)
[2021-05-26] MEDS ORDERED: VALI2TAB PO (06:20)
--- NOTE | 2021-05-26 07:27 | REPVR ---
PROCEDURE INFORMATION: Exam: XR Lumbosacral Spine Exam date and time: 05/26/2021 6:03 AM Age: 75 years old Clinical indication: Other: Fall TECHNIQUE: Imaging protocol: XR of the lumbosacral spine. Views: 4 or 5 views. COMPARISON: CT ABD PELVIS W/O CONTRAST 11/09/2019 10:44 AM FINDINGS: Bones/joints: Mild scoliosis and degenerative change. No acute bony injury or malalignment in the lumbar spine. Gastrointestinal: Mild bowel dilatation and prominent stool. IMPRESSION: No acute bony injury or malalignment in the lumbar spine. Electronically signed by: Vadim Hoskins On 05/26/2021 07:26:59 AM
== END 2021-05-26 06:35 | disposition home or self-care (01) ==
LOC: M ED 23:42
DX: M54.5 Low back pain (principal); M62.830 Muscle spasm of back; X50.0XXA Overexertion from strenuous movement or load, initial encounter; Y92.9 Unspecified place or not applicable; Y93.9 Activity, unspecified; Y99.9 Unspecified external cause status; M50.322 Other cervical disc degeneration at C5-C6 level; M50.323 Other cervical disc degeneration at C6-C7 level; M51.36 Other intervertebral disc degeneration, lumbar region; Z88.2 Allergy status to sulfonamides; Z88.5 Allergy status to narcotic agent; Z88.6 Allergy status to analgesic agent; Z79.899 Other long term (current) drug therapy
CPT/HCPCS: 70450; 72110; 72125; 93041; 96374; 99284; J1885

== ENCOUNTER → 2021-08-31 | Outpatient (CLI) | payer MEDICARE, OTHER ==
[~2021-08-31] MED LIST changes: +KETO10TAB PO; +VALI2TAB PO
[2021-08-31 11:10] LABS: ALBUMIN 3.7 GM/DL (3.2-5.2); ALT/SGPT 25 U/L (12-78); BILIRUBIN,TOTAL 0.4 MG/DL (0.2-1.0); BLOOD UREA NITROGEN 17 MG/DL (7-18); CALCIUM LEVEL 9.5 MG/DL (8.8-10.2); CARBON DIOXIDE LEVEL 31 MEQ/L (21-32); CHLORIDE LEVEL 106 MEQ/L (98-107); CREATININE FOR GFR 0.91 MG/DL (0.55-1.30); GLOMERULAR FILTRATION RATE > 60.0 (>39); GLUCOSE, FASTING 57 MG/DL (70-100); POTASSIUM SERUM 4.4 MEQ/L (3.5-5.1); SODIUM LEVEL 141 MEQ/L (136-145); TOTAL PROTEIN 7.2 GM/DL (6.4-8.2)
== END ==
LOC: M LAB 09:21
PROVIDERS: ATTEND Family Medicine
DX: E03.9 Hypothyroidism, unspecified (principal)

== ENCOUNTER → 2021-09-16 | Outpatient (CLI) | payer MEDICARE, OTHER ==
[~2021-09-16] MED LIST changes: +MUCI600T31 PO
== END ==
LOC: M LABSMTC 09:19
PROVIDERS: ATTEND Anesthesiology
DX: Z01.812 Encounter for preprocedural laboratory examination (principal); Z20.822 Contact with and (suspected) exposure to COVID-19

== ENCOUNTER 2021-09-21 08:08 | Day surgery (SDC) | payer MEDICARE, OTHER ==
[~2021-09-21] VITALS: Ht 157.5 cm; Wt 49.8 kg
[~2021-09-21 08:08] MED LIST changes: +NS 1,000 ML IV ONE
--- OUTSIDE RECORDS SUMMARY | 2021-09-21 08:11 | CCD | Continuity of Care Document ---
Author Irina Harris M.D. Organization Unknown Address [address] [place] [address] Phone [phone] Care Team Providers Care Transportation Planner Name Role Phone [facility] [phone] Yael FOREMAN, Jacquelyn AUTM [phone] [facility] [phone] Problems Active Problems Provider Date Fibromyalgia Shaw Velasquez M.D. Onset: 2015 Allergic rhinitis Shaw Velasquez M.D. Onset: 2015 Restless legs Shaw Velasquez M.D. Onset: 2013 Hypothyroidism Shaw Velasquez M.D. Onset: 2013 Myalgia & Myositis Unspecified Shaw Velasquez M.D. On set: 12/10/2013 Irritable bowel syndrome Shaw Velasquez M.D. Onset: 0 12/10/2013 Social History Type Date Description Comments Sex Unknown Tobacco Use Start: Unknown Never Smoked Cigarettes Tobacco Use Start: Unknown Never Smoked Cigars Tobacco Use Start: Unknown Never Smoked A Pipe Smoking Status Reviewed: 07/25/21 Never Smoked A Pipe Tobacco Use Start: Unknown Never Used Smokeless Tobacco ETOH Use Rarely consumes liquor Tobacco Use Start: Unknown Patient has never smoked Recreational Drug Use Never Used Drugs Exercise Type/Frequency Exercises regularly Tattoo/Piercing Pierced ears Sun Exposure Use less than 15 SPF Seat Belt/Car Seat Always uses car seat Guns in Home Yes, Locked Up Smoke Alarms Yes Smoke Alarms Carbon Monoxide Detector: Yes Allergies and adverse reactions Active Allergies Criticality Reaction | Severity Comments Date Penicillins Unable to assess criticality Contact dermatitis 12/10/2013 Sulfa Antibiotics Unable to assess criticality Contact dermatitis 12/10/2013 Seldane Unable to assess criticality Contact dermatitis 12/10/2013 Verapamil Unable to assess criticality Contact dermatitis 12/10/2013 Opioids Unable to assess criticality Contact dermatitis 12/10/2013 Beclomethasone Unable to assess criticality flu id running out of her nose, eyes itching 04/26/2017 Peg-150 Disetearate Unable to assess criticality | Mild 05/24/2017 Flonase Unable to assess criticality Urticaria 02/25/2018 Medications Active Medications SIG Qnty Indications Ordering Provide r Date Prednisone 20mg Tablets 2 by mouth every day x 5 days 10tabs L23.89 Malena Reese M.D. 021 Epipen 2-Sharath 0.3mg/0 .3ML Solution Auto-Inject use for severe allergic reaction as directed 2units Anneliese Young PA 01/23/2021 Proair HFA 108(90Base) mcg/Act Aer osol 2 puffs every 4 hours as needed for wheezing and coughing 8.500gm J45. 20 Shaw Velasquez M.D. 03/23/2016 L-Methylfolate Calcium 15mg Tablet s 1 tab by mouth every day 90tabs Jeanette Ferrell FNP 12/10/19 14 Multi-Vitamin Tablets 1 po q d 100tabs Unknown Singulair 10mg Tablets 1 by mouth every day 90tabs Jeanette Ferrell FNP Yolanda Allergy 180mg Tablets on po q day 30tabs Unknown Levothyroxine Sodium 25mcg Tablets 1 by mouth every day 90tabs Jeanette Ferrell FNP Calcium 500+D [id number] Table ts 1 tab by mouth twice a day 180tabs Unknown Tumeric 200mg 1 po qd Unknown Immunizations CPT Code Status Date Vaccine Lot # [id number] Given 08/08/2021 Influenza Virus Vaccine, Marcelino drivalent,multidose vial [id number] Given 07/08/2020 Influenza Virus Vaccine, Marcelino drivalent,multidose vial [id number] Given 08/19/2018 Influenza Virus Vaccine, Marcelino drivalent,multidose vial [id number] Given 08/02/2017 Influenza Vaccine (Fluzone)( medicare) [id number] 11733 Given 12/31/2016 Pneumococcal Vaccine [id number] Given 09/23/2015 Prevnar 13 [id number] Given 03/29/2015 Boostrix (Tdap) Tetnus, Diphtheria Toxoids & Acellular Pertussis [id number] Refused 12/30/2015 Zostavax Vital Signs Date Vital Result Comment 08/08/2021 11:45am Body Temperature 97.1 F Height 63 inches 5'3" Peak Expiratory Flow Rate 312 Estimated Peak Flow Rate Leiter Body Weight 115 lb 07/25/2021 9:44am BP Systolic 113 mmHg BP Diastolic 59 mmHg Heart Rate 74 /min Body Temperature 97.6 F Respiratory Rate 16 /min Height 63 inches 5'3" Weight 107.00 lb O2 % BldC Oximetry 99 % Peak Expiratory Flow Rate 312 Estimated Peak Flow Rate Leiter Body Weight 115 lb BMI (Body Mass Index) 19.0 kg/m2 Results Description No Information Available Procedures Date Code Description Status 07/25/2021 11814 Office/Outpatient Established Mo d MDM 30-39 Min Completed 11/29/2020 32495684 Mammogram Completed 11/29/2020 [id number] Bone Mineral Density Test Comple sravanthi 03/27/2018 75507919 Colonoscopy Completed Medical Devices Description No Information Available Encounters Type Date Location Provider Dx Diagnosis Office Visit 07/25/2021 9:45a Main Office Malena Reese M.D. E 03.9 Hypothyroidism, unspecified Z85.038 Personal history of malignan t neoplasm of large intestine M25.512 Pain in left shoulder L23.89 Allergic contact dermatitis due to other agents J45.30 Mild persistent asthma, unco mplicated Assessments Date Code Description Provider 07/25/2021 E03.9 Hypothyroidism, unspecified Will Malena lacy M.D. 07/25/2021 Z85.038 Personal history of other malignant neoplasm of large intestine Malena Reese M.D. 07/25/2021 M25.512 Pain in left shoulder Malena Reese M.D. 07/25/2021 L23.89 Allergic contact dermatitis due to other agents Malena Reese M.D. 07/25/2021 J45.30 Mild persistent asthma, uncompli cated Malena Reese M.D. Plan of Treatment No Information Available Functional Status Functional Condition Comment Date Status Bifocal glasses Active Independent with all ADL's Activ e Mental Status Mental Condition Comment Date Status Can Understand Information Activ e Referrals Refer to Reason for Referral Status Appt Date [facility] Please evaluate for mild per sistent asthma not well controlled and history of reaction to multiple meds. Thank you. Scheduled 12/12/2021 [id number] [facility] [address] [facility] [address] [phone] Yael LUQUE., Jacquelyn Please evaluate for chronic left shoudle r pain. Thank you. Closed 08/02/2021 [address] [facility] [address] [place] [address] [phone]
--- OUTSIDE RECORDS SUMMARY | 2021-09-21 08:11 | CCD ---
Author Author [facility] Organization [facility] Address Unknown Phone Unavailable Care Team Providers Care Senior Office Assistant Name Role Phone SUDHIR MCNEAL MD Unavailable Unavailable SUDHIR MCNEAL MD Unavailable Unavailable SUDHIR MCNEAL MD Unavailable Unavailable SUDHIR MCNEAL MD Unavailable Unavailable SUDHIR MCNEAL MD Unavailable Unavailable SUDHIR MCNEAL MD Unavailable Unavailable SUDHIR MCNEAL MD Unavailable Unavailable SUDHIR MCNEAL MD Unavailable Unavailable SUDHIR MCNEAL MD Unavailable Unavailable SUDHIR MCNEAL MD Unavailable Unavailable SUDHIR MCNEAL MD Unavailable Unavailable SUDHIR MCNEAL MD Unavailable Unavailable SUDHIR MCNEAL MD Unavailable Unavailable SUDHIR MCNEAL MD Unavailable Unavailable SUDHIR MCNEAL MD Unavailable Unavailable SUDHIR MCNEAL MD Unavailable Unavailable SUDHIR MCNEAL MD Unavailable Unavailable SUDHIR MCNEAL MD Unavailable Unavailable SUDHIR MCNEAL MD Unavailable Unavailable SUDHIR MCNEAL MD Unavailable Unavailable SUDHIR MCNEAL MD Unavailable Unavailable SUDHIR MCNEAL MD Unavailable Unavailable SUDHIR MCNEAL MD Unavailable Unavailable SUDHIR MCNEAL MD Unavailable Unavailable SUDHIR MCNEAL MD Unavailable Unavailable SUDHIR MCNEAL MD Unavailable Unavailable SUDHIR MCNEAL MD Unavailable Unavailable SUDHIR MCNEAL MD Unavailable Unavailable SUDHIR MCNEAL MD Unavailable Unavailable SUDHIR MCNEAL MD Unavailable Unavailable SUDHIR MCNEAL MD Unavailable Unavailable SUDHIR MCNEAL MD Unavailable Unavailable SUDHIR MCNEAL MD Unavailable Unavailable SUDHIR MCNEAL MD Unavailable Unavailable SUDHIR MCNEAL MD Unavailable Unavailable SUDHIR MCNEAL MD Unavailable Unavailable SUDHIR MCNEAL MD Unavailable Unavailable SUDHIR MCNEAL MD Unavailable Unavailable SUDHIR MCNEAL MD Unavailable Unavailable SUDHIR MCNEAL MD Unavailable Unavailable SUDHIR MCNEAL MD Unavailable Unavailable SUDHIR MCNEAL MD Unavailable Unavailable SUDHIR MCNEAL MD Unavailable Unavailable SUDHIR MCNEAL MD Unavailable Unavailable SUDHIR MCNEAL MD Unavailable Unavailable SUDHIR MCNEAL MD Unavailable Unavailable SUDHIR MCNEAL MD Unavailable Unavailable SUDHIR MCNEAL MD Unavailable Unavailable SUDHIR MCNEAL MD Unavailable Unavailable SUDHIR MCNEAL MD Unavailable Unavailable SUDHIR MCNEAL MD Unavailable Unavailable SUDHIR MCNEAL MD Unavailable Unavailable SUDHIR MCNEAL MD Unavailable Unavailable SUDHIR MCNEAL MD Unavailable Unavailable SUDHIR MCNELA MD Unavailable Unavailable SUDHIR MCNEAL MD Unavailable Unavailable SUDHIR MCNEAL MD Unavailable Unavailable PARTaqueria MONCADA MD Unavailable Unavailable PARNESTaqueria MD Unavailable Unavailable PARNESTaqueria MD Unavailable Unavailable PARTaqueria MONCADA MD Unavailable Unavailable PARNESTaqueria MD Unavailable Unavailable PARTaqueria MONCADA MD Unavailable Unavailable PARTaqueria MONCADA MD Unavailable Unavailable PARTaqueria MONCADA MD Unavailable Unavailable PARNESTaqueria MD Unavailable Unavailable PARNESTaqueria MD Unavailable Unavailable PARTaqueria MONCADA MD Unavailable Unavailable PARNESTaqueria MD Unavailable Unavailable PARTaqueria MONCADA MD Unavailable Unavailable PARNESTaqueria MD Unavailable Unavailable PARNESTaqueria MD Unavailable Unavailable PARNESTaqueria MD Unavailable Unavailable PARNESTaqueria MADDY MD Unavailable Unavailable PARNESTaqueria MD Unavailable Unavailable PARNESTaqueria MD Unavailable Unavailable PARNESTaqueria MD Unavailable Unavailable PARNESTaqueria MD Unavailable Unavailable PARNESTaqueria MD Unavailable Unavailable PARNESTaqueria MD Unavailable Unavailable PARNESTaqueria MD Unavailable Unavailable PARNESTaqueria MD Unavailable Unavailable PARNESTaqueria MD Unavailable Unavailable PARNES Z MADDY LUQUE Unavailable Unavailable PARNES, Z MADDY MD Unavailable Unavailable PARNES, Z MADDY MD Unavailable Unavailable PARNES, Z MADDY MD Unavailable Unavailable PARNES, Z MADDY MD Unavailable Unavailable PARNES, Z MADDY MD Unavailable Unavailable PARNES, Z MADDY MD Unavailable Unavailable PARNES, Z MADDY MD Unavailable Unavailable PARNES, Z MADDY MD Unavailable Unavailable PARNES, Z MADDY MD Unavailable Unavailable PARNES, Z MADDY MD Unavailable Unavailable PARNES, Z MADDY MD Unavailable Unavailable PARNES, Z MADDY MD Unavailable Unavailable PARNES, Z MADDY MD Unavailable Unavailable PARNES, Z MADDY MD Unavailable Unavailable PARNES, Z MADDY MD Unavailable Unavailable Hugh, Meaghan Guy MD Unavailable Unavailable Hugh, Meaghan Guy MD Unavailable Unavailable Hugh, Meaghan Guy MD Unavailable Unavailable Hugh, Meaghan Guy MD Unavailable Unavailable Hugh, Meaghan Guy MD Unavailable Unavailable Hugh, Meaghan Guy MD Unavailable Unavailable Hugh, Meaghan Guy MD Unavailable Unavailable Hugh, Meaghan Guy MD Unavailable Unavailable Hugh, Meaghan Guy MD Unavailable Unavailable Hugh, Meaghan Guy MD Unavailable Unavailable Hugh, Meaghan Guy MD Unavailable Unavailable Hugh, Meaghan Guy MD Unavailable Unavailable Hugh, Meaghan Guy MD Unavailable Unavailable Hugh, Meaghan Guy MD Unavailable Unavailable Hugh, Meaghan Guy MD Unavailable Unavailable Hugh, Meaghan Guy MD Unavailable Unavailable Hugh, Meaghan Guy MD Unavailable Unavailable Hugh, Meaghan Guy MD Unavailable Unavailable Hugh, Meaghan Guy MD Unavailable Unavailable Hugh, Meaghan uGy MD Unavailable Unavailable Hugh, Meaghan Guy MD Unavailable Unavailable Hugh, Meaghan Guy MD Unavailable Unavailable Hugh, Meaghan Guy MD Unavailable Unavailable Hugh, Meaghan Guy MD Unavailable Unavailable Hugh, Meaghan Guy MD Unavailable Unavailable Hugh, Meaghan Guy MD Unavailable Unavailable Hugh, Meaghan Guy MD Unavailable Unavailable Hugh, Meaghan Guy MD Unavailable Unavailable Hugh, Meaghan Guy MD Unavailable Unavailable Hugh, Meaghan Guy MD Unavailable Unavailable Hugh, Meaghan Guy MD Unavailable Unavailable Hugh, Meaghan Guy MD Unavailable Unavailable Hugh, Meaghan Guy MD Unavailable Unavailable Hugh, Meaghan Guy MD Unavailable Unavailable Hugh, Meaghan Guy MD Unavailable Unavailable Hugh, Meaghan Guy MD Unavailable Unavailable Hugh, Meaghan Guy MD Unavailable Unavailable Hugh, Meaghan Guy MD Unavailable Unavailable Hugh, Meaghan Guy MD Unavailable Unavailable Hugh, Meaghan Guy MD Unavailable Unavailable Hugh, Meaghan Guy MD Unavailable Unavailable Hugh, Meaghan Guy MD Unavailable Unavailable Hugh, Meaghan Guy MD Unavailable Unavailable Hugh, Meaghan Guy MD Unavailable Unavailable Hugh, Meaghan Guy MD Unavailable Unavailable Hugh, Meaghan Guy MD Unavailable Unavailable Hugh, A Malena MD Unavailable Unavailable Hugh, A Malena MD Unavailable Unavailable Hugh, A Malena MD Unavailable Unavailable Hugh, A Malena MD Unavailable Unavailable Hugh, A Malena MD Unavailable Unavailable Hugh, A Malena MD Unavailable Unavailable Hugh, A Malena MD Unavailable Unavailable Hugh, A Malena MD Unavailable Unavailable Hugh, A Malena MD Unavailable Unavailable Hugh, A Malena MD Unavailable Unavailable Hugh, A Malena MD Unavailable Unavailable Hugh, A Malena MD Unavailable Unavailable Hugh, A Malena MD Unavailable Unavailable Hugh, A Malena MD Unavailable Unavailable Hugh, A Malena MD Unavailable Unavailable Hugh, A Malena MD Unavailable Unavailable Hugh, A Malena MD Unavailable Unavailable Hugh, A Malena MD Unavailable Unavailable Hugh, A Malena MD Unavailable Unavailable Hugh, A Malena MD Unavailable Unavailable Hugh, A Malena MD Unavailable Unavailable Hugh, A Malena MD Unavailable Unavailable Hugh, A Malena MD Unavailable Unavailable Hugh, A Malena MD Unavailable Unavailable Hugh, A Malena MD Unavailable Unavailable Hugh, A Malena MD Unavailable Unavailable Hugh, A Malena MD Unavailable Unavailable Hugh, A Malena MD Unavailable Unavailable Hugh, A Malena MD Unavailable Unavailable Hugh, A Malena MD Unavailable Unavailable Hugh, A Malena MD Unavailable Unavailable Hugh, A Malena MD Unavailable Unavailable Hugh, A Malena MD Unavailable Unavailable Hugh, A Malena MD Unavailable Unavailable Hugh, A Malena MD Unavailable Unavailable Hugh, A Malena MD Unavailable Unavailable Re-disclosure Warning The records that you are about to access may contain information from federally-assisted alcohol or drug abuse programs. If such information is present, then the following federally mandated warning applies: This information has been disclosed to you from records protected by federal confidentiality rules (42 CFR part 2). The federal rules prohibit you from making any further disclosure of this information unless further disclosure is expressly permitted by the written consent of the person to whom it pertains or as otherwise permitted by 42 CFR part 2. A general authorization for the release of medical or other information is NOT sufficient for this purpose. The Federal rules restrict any use of the information to criminally investigate or prosecute any alcohol or drug abuse patient.The records that you are about to access may contain highly sensitive health information, the redisclosure of which is protected by Article 27-F of the [facility] Public Health law. If you continue you may have access to information: Regarding HIV / AIDS; Provided by facilities licensed or operated by the [facility] Office of Mental Health; or Provided by the [facility] Office for People With Developmental Disabilities. If such information is present, then the following [facility] mandated warning applies: This information has been disclosed to you from confidential records which are protected by state law. State law prohibits you from making any further disclosure of this information without the specific written consent of the person to whom it pertains, or as otherwise permitted by law. Any unauthorized further disclosure in violation of state law may result in a fine or penitentiary sentence or both. A general authorization for the release of medical or other information is NOT sufficient authorization for further disc losure. Family History Family Member Name Family Member Gender Family Member Status Date o f Status Description Data Source(s) Unknown Unknown Problem [facility] ([facility]) 2 step,1 adopted,1 biological Unknown Unknown Problem [facility] ([facility] Father Unknown Male Problem [facility] ([facility]) Unknown Male Problem [facility] ([facility] Unknown Male Problem [facility] ([facility]) Unknown Male Problem [facility] ([facility] Unknown Male Problem [facility] ([facility] Unknown Male Problem [facility] ([facility] Encounters Encounter Providers Location Date Indications Data Source(s ) Outpatient Attender: MADDY CARDENAS MDConsultant: CURTIS MCNEAL MD 08/02/2021 01:06:00 PM EDT - 08/02/2021 01:06:00 PM EDT [facility] Outpatient Attender: Malena Reese MD Main Office 07/25/2021 09:45:0 0 AM EDT [facility] ([facility] Immunizations Vaccine Date Status Description Data Source(s) COVID-19 VACCINE Moderna 09/07/2021 12:00:00 AM EST completed [place] Vaccine Series Complete: YESThis Data wa s Submitted to [facility] Via [employer]. New in 2012. IIV4 08/08/2021 11:44:00 AM EDT completed [facility] ([facility] COVID-19 VACCINE Isatu 01/26/2021 12:00:00 AM EDT completed [place] Vaccine Series Complete: YESThis Data wa s Submitted to [facility] Via [employer]. Medications Medication Brand Name Start Date Product Form Dose Route Admi nistrative Instructions Pharmacy Instructions Status Indications Reaction Description Data Source(s) Prednisone 20 MG Oral Tablet Prednisone 07/25/2021 12:00:00 AM EDT ORAL active [facility] ([facility] POLYETHYLENE GLYCOL 3350 142 MG/ML Oral Solution [Miralax] M iralax 05/04/2021 12:00:00 AM EDT active M [facility] ([facility], ) Magnesium Hydroxide 80 MG/ML Oral Suspension Milk Of Magnesi a 05/04/2021 12:00:00 AM EDT ORAL active M [facility] ([facility], ) 0.3 ML Epinephrine 1 MG/ML Auto-Injector [Epipen] Epipen 2-P ak 01/23/2021 12:00:00 AM EDT active [facility] ([facility] Insurance Providers Payer name Policy type / Coverage type Policy ID Covered republican ID Covered republican's relationship to tubbs Policy Tubbs Plan Information [facility] Service Medigap Part B [id number] Self MEDICARE [id number] SP [id number] MEDICARE A [id number] Self [id number] A MEDICARE [id number] SP [id number] A FOR LIFE [id number] SP [id number] [facility] ([facility] Medigap Part B [id number] Self Medicare [place] Medicare Primary [id number] Self FOR LIFE U [id number] Self [id number] FOR LIFE [id number] SP 0 [id number] FOR LIFE [id number] SP [id number] MEDICARE C [id number] S [id number] A For Life Medigap Part B [id number] [id number] Self [id number] Medicare Part A [place] Primary [id number] Self [id number] For Life Medigap Part B [id number] Self [id number] [place] Primary [id number] Self [id number] FOR LIFE -O/P [id number] 18 [id number] MEDICARE PART A -O/P [id number] 18 [id number] For Life Medigap Part B [id number] [id number] Self [id number] [place] Part [place] Primary [id number] Self 1 [id number] For Life Medigap Part B [id number] 83.3.227.99.510.37942.0 Self [id number] Medicare Part A [place] Primary [id number] Self [id number] [facility] For Life Medigap Part B [id number] Self [id number] Medicare [place] Medicare Primary [id number]46.61002.0 Self [id number] For Life Medigap Part B [id number].2809.38948.0 Self [id number] Medicare [place] Primary [id number] Self [id number] For Life Medigap Part B [id number] 2.0.1.405849.3.227.99.2809.21516.0 Self [id number] [place] Primary [id number] .[id number] Self [id number] FOR LIFE [id number] SP [id number] WPS For Life Medigap Part B [id number] .[id number] Self [id number] Medicare [place] Medicare Primary [id number] .[id number] Self [id number] [facility] Medigap Part B [id number] .[id number] Self [id number] For Life Medigap Part B [id number] .[id number] Self [id number] Medicare [place] Primary [id number] [facility] DIV UNAVAILABLE SP UNAVAILABLE MEDICARE [id number] SP [id number] A WPS For Life Medigap Part B [id number] Self [id number] Medicare [place]GS Medicare Primary [id number] Self [id number] WPS For Life Medigap Part B [id number] Self [id number] Medicare [place]/[facility] Medicare Primary [id number] .[id number] Self [id number] [facility] Medigap Part B [id number] 2.0.1.819096.3.227.99.2809.35965.0 Self [id number] For Life Medigap Part B [id number] .0.1.564488.3.227.99.2809.32084.0 Self [id number] Medicare [place] Primary [id number] .[id number]25.0 Self [id number] WPS For Life Medigap Part B [id number] 2.0.1.842089.3.227.99.8646.49466.0 Self [id number] Medicare [place]/[facility] Medicare Primary [id number].8646.00550.0 Self [id number] WPS For Life Medigap Part B [id number] .[id number]40.0 Self [id number] Medicare [place] Medicare Primary [id number] .[id number] Self [id number] MEDICARE C [id number] S [id number] T MEDICARE [id number] SP [id number] T WPS For Life Medigap Part B [id number].8646.19170.0 Self [id number] Medicare [place]/[facility] Medicare Primary [id number]58.0 Self [id number] [facility] Medigap Part B [id number] .[id number]3.0 Self [id number] For Life Medigap Part B [id number] 2.16.840.1.468689.3.227.99.2809.20867.0 Self [id number] Medicare [place] Medicare Primary [id number].2809.14309.0 Self [id number] For Life Medigap Part B [id number] Self Health [employer] Medigap Part B [id number] Self Medicare [place] Medicare Primary [id number] Self PGBA [facility] [id number] SP [id number] MEDICARE PART A [facility] [id number] 18 [id number] FOR LIFE [id number] 18 [id number] MEDICARE PART A [facility] [id number] 18 [id number] MEDICARE C [id number] S [id number] FOR LIFE O [id number] S [id number] For Life Medigap Part B [id number] 2..[id number]14.0 Self [id number] Medicare [place] Medicare Primary [id number] 2..840.1.503730.3.227.99.2809.45700.0 Self [id number] For Life Medigap Part B [id number] 2..840.1.525818.3.227.99.2809.27123.0 Self [id number] Medicare [place] Primary [id number] 2..840.1.581706.3.227.99.2809.53208.0 Self [id number] Problems, Conditions, and Diagnoses Code Display Name Description Problem Type Effective Dates Data Source(s) M7542 Impingement syndrome of left shoulder Im pingement syndrome of left shoulder Diagnosis 08/02/2021 01:06:00 PM EDT [facility] Surgeries/Procedures Procedure Description Date Indications Data Source(s) OFFICE OUTPATIENT VISIT 25 MINUTES 07/25/2021 12:00:00 AM EDT [facility] ([facility] Bone Mineral Density Test 11/29/2020 12:00:00 AM EST [facility] ([facility] Mammogram 11/29/2020 12:00:00 AM EST [facility] ([facility] Xray: 02/24/18 - Breast, Mammography, Bi lateral Results ID Date Data Source [id number] 09/16/2021 09:05:00 AM EST [facility] Name Value Range Interpretation Code Description Data Amarilys rce(s) Supporting Document(s) SARS-CoV-2 (COVID-19) RNA [Presence] in Respiratory specimen by LIANE with probe detection Not Detected [facility] This lab was ordered by [facility] and reported by [employer] ID Date Data Source [id number] 11/29/2020 12:00:00 AM EST [facility] oly Imaging Malena Reese MD Patient Name:NATHANIEL [id number] Date of : 1945[place] [address] Date of Exam: [facility]#: Fax: [phone] EXAM: MAMMO SCREENING WITH CADCLINICAL INFORMATION: Screening.Comparison is 02/24/2018 as well as other prior exams.No family history of breast cancer.Based on the personal and family history information your patient suppliedat the time of imaging, her lifetime risk of breast cancer estimated by theTyrer-Cuzick model is 3.5%. Given that this patient has less than 20% TCrisk score, no further medical management is currently recommended at thistime.Digital screening (2D) mammography was performed bilaterally.Additionally, breast tomosynthesis (3D mammography) was performedbilaterally in the CC and MLO projections and compared to the priorexam(s).There has been no change in appearance of the mammogram from prior studies. There is a moderate amount of residual fibroglandular tissue remaining,which is fairly symmetric. There has been no interval development ofdominant masses, areas of structural distortion or clusters ofmicrocalcifications typical of malignancy. Large coarse calcifications arepresent, of no clinical significance. Scattered lymph nodes are seen inthe axilla.The Volpara volumetric breast density category is C, the breasts areheterogeneously dense which may obscure small masses.IMPRESSION:BI- RADS Category 1 - Negative Mammogram. Currently no mammographicevidence of malignancy. Routine follow-up is recommended in 1 year.This mammogram was read with the assistance of [employer], an FDAapproved computer aided detection system for mammography.Negative x-ray reports should not delay surgical consultation if a dominantor clinically suspicious mass is present.Not all breast cancers can be identified by mammography. Therefore, werecommend that you continue to perform regular breast self-examination andphysical examination and then promptly contact your physician of anyconcerns or changes.Adenosis and dense breasts may obscure an underlying neoplasm. The patient states that a clinical breast examination was over a year ago.ANNETTE Reyes/Mani you for referring NATHANIEL MOULTON to our office.Electronically Signed - BASSAM PETERSEN MD 11/30/20 17:54 Name Value Range Interpretation Code Description Data Amarilys rce(s) Supporting Document(s) Procedure Social History Code Duration Value Status Description Data Source(s ) Smoking 07/25/2021 12:00:00 AM EDT Never Smoked A Pipe complet ed Never Smoked A Pipe [facility] ([facility] Vital Signs ID Date Data Source UNK Name Value Range Interpretation Code Description Data Source(s) Body height 63 [in_i] 63 [in_i] [facility] ([facility] 5'3" [place] body weight 115 [lb_av] 115 [lb_av] [facility] T ([facility] Body temperature 97.1 [degF] 97.1 [degF] [facility] ([facility] Body weight 107.00 [lb_av] 107.00 [lb_av] MEDEN T ([facility] Systolic blood pressure 113 mm[Hg] 113 mm[Hg] M [facility] ([facility] Keene body weight 115 [lb_av] 115 [lb_av] [facility] T ([facility] Body mass index (BMI) [Ratio] 19.0 kg/m2 19.0 k g/m2 [facility] ([facility] Oxygen saturation in Arterial blood by Pulse oximetry 99 % 99 % [facility] ([facility] Diastolic blood pressure 59 mm[Hg] 59 mm[Hg] [facility] ([facility] Heart rate 74 /min 74 /min [facility] ([facility] Body temperature 97.6 [degF] 97.6 [degF] [facility] ([facility] Respiratory rate 16 /min 16 /min [facility] ( [facility] Body height 63 [in_i] 63 [in_i] [facility] ([facility] 5'3" Systolic blood pressure 104 mm[Hg] 104 mm[Hg] M [facility] ([facility], ) Diastolic blood pressure 64 mm[Hg] 64 mm[Hg] [facility] ([facility], ) Body height 63 [in_i] 63 [in_i] [facility] ([facility], ) 5'3" Body weight 109.00 [lb_av] 109.00 [lb_av] [facility] T ([facility]) Body mass index (BMI) [Ratio] 19.3 kg/m2 19.3 k g/m2 [facility] ([facility]) Keene body weight 115 [lb_av] 115 [lb_av] MED[facility] T ([facility]) Body weight 49.442 kg 49.442 kg [facility] ([facility]) Body surface area Derived from formula 1.49 m2 1.49 m2 [facility] ([facility]) Body temperature 97.4 [degF] 97.4 [degF] [facility] ([facility] Oxygen saturation in Arterial blood by Pulse oximetry 98 % 98 % [facility] ([facility] Keene body weight 115 [lb_av] 115 [lb_av] MEDEN T ([facility] Body mass index (BMI) [Ratio] 21.3 kg/m2 21.3 k g/m2 [facility] ([facility] Systolic blood pressure 127 mm[Hg] 127 mm[Hg] [facility] ([facility] Diastolic blood pressure 77 mm[Hg] 77 mm[Hg] [facility] ([facility] Heart rate 74 /min 74 /min [facility] ([facility] Body weight 120.38 [lb_av] 120.38 [lb_av] MED[facility] T ([facility] Respiratory rate 17 /min 17 /min [facility] ( [facility] Body height 63 [in_i] 63 [in_i] [facility] ([facility] 5'3"
--- OUTSIDE RECORDS SUMMARY | 2021-09-21 08:11 | CCD | Continuity of Care Document ---
Author Irina Harris M.D. Organization Unknown Address [address] [place] [address] Phone [phone] Care Team Providers Care Legal Billing Specialist Name Role Phone [facility] Yael FOREMAN, Jacquelyn AUTM [phone] Problems Active Problems Provider Date Fibromyalgia Shaw [...] Yes Smoke Alarms Carbon Monoxide Detector: Yes Allergies, Adverse Reactions, Alerts Active Allergies Criticality Reaction | Severity Comments [...] day 90tabs Jeanette Ferrell FNP Calcium 500+D [id number]-Xpvb Table ts 1 tab by mouth twice a day 180tabs Unknown Tumeric 200mg 1 po qd Unknown Immunizations CPT Code Status Date Vaccine Lot # [id number] Given 07/08/2020 Influenza Virus Vaccine, Marcelino drivalent,multidose vial [id number] 23987 Given 08/19/2018 Influenza Virus Vaccine, Marcelino drivalent,multidose vial [id number] Q2038 Given 08/02/2017 Influenza Vaccine (Fluzone)( medicare) [id number] 73073 Given 12/31/2016 Pneumococcal Vaccine [id number] 63472 Given 09/23/2015 Prevnar 13 26733 Given 03/29/2015 Boostrix (Tdap) Tetnus, Diphtheria Toxoids & Acellular Pertussis [id number] Refused 12/30/2015 Zostavax Vital Signs Date Vital Result Comment 07/25/2021 9:44am BP Systolic 113 mmHg BP Diastolic 59 mmHg Heart Rate 74 /min Body Temperature 97.6 F Respiratory Rate 16 /min Height 63 inches 5'3" Weight 107.00 lb O2 % BldC Oximetry 99 % Peak Expiratory Flow Rate 312 Estimated Peak Flow Rate [place] Body Weight 115 lb BMI (Body Mass Index) 19.0 kg/m2 01/18/2021 2:21pm BP Systolic 127 mmHg BP Diastolic 77 mmHg Heart Rate 74 /min Body Temperature 97.4 F Respiratory Rate 17 /min Height 63 inches 5'3" Weight 120.38 lb O2 % BldC Oximetry 98 % Peak Expiratory Flow Rate 305 Estimated Peak Flow Rate [place] Body Weight 115 lb BMI (Body Mass Index) 21.3 kg/m2 Results Description No Information Available Procedures Date Code Description Status 07/25/2021 18235 Office/Outpatient Established Mo d MDM 30-39 Min Completed 11/29/2020 [id number] Mammogram Completed 11/29/2020 [id number] Bone Mineral Density Test Comple sravanthi 03/27/2018 [id number] Colonoscopy Completed Medical Devices Description No Information [...] Understand Information Activ e Referrals Refer to Dr Reason for Referral Status Appt Date Yael FOREMAN, Jacquelyn Please evaluate for chronic left shoudle r pain. Thank you. Sent [address] [address] [phone]
--- OUTSIDE RECORDS SUMMARY | 2021-09-21 08:11 | CCD | Continuity of Care Document ---
Author Irina Harris M.D. Organization Unknown Address [address] [place] [address] Phone [phone] Care Team Providers Care Frog Shaker Name Role Phone [facility] AUT[facility] [phone] Yael FOREMAN, Jacquelyn AUTM [phone] Problems Active Problems Provider Date Fibromyalgia Shaw [...] day 90tabs Jeanette Ferrell FNP Calcium 500+D 372-751mf-Waib Table ts 1 tab by mouth twice a day 180tabs Unknown Tumeric 200mg 1 po qd Unknown Immunizations CPT Code Status Date Vaccine Lot # [id number] Given 07/08/2020 Influenza Virus Vaccine, Marcelino drivalent,multidose vial [id number] 09465 Given 08/19/2018 Influenza Virus Vaccine, Marcelino drivalent,multidose vial [id number] Q2038 Given 08/02/2017 Influenza Vaccine (Fluzone)( medicare) [id number] 19849 Given 12/31/2016 Pneumococcal Vaccine [id number] 35482 Given 09/23/2015 Prevnar 13 99099 Given 03/29/2015 Boostrix (Tdap) Tetnus, Diphtheria Toxoids & Acellular Pertussis 16687 Refused 12/30/2015 Zostavax Vital Signs Date Vital Result Comment 07/25/2021 9:44am BP Systolic 113 mmHg BP Diastolic 59 mmHg Heart Rate 74 /min Body Temperature 97.6 F Respiratory Rate 16 /min Height 63 inches 5'3" Weight 107.00 lb O2 % BldC Oximetry 99 % Peak Expiratory Flow Rate 312 Estimated Peak Flow Rate [place] Body Weight 115 lb BMI (Body Mass Index) 19.0 kg/m2 01/18/2021 2:21pm BP Systolic 127 mmHg BP Diastolic 77 mmHg Heart Rate 74 /min Body Temperature 97.4 F Respiratory Rate 17 /min Height 63 inches 5'3" Weight 120.38 lb O2 % BldC Oximetry 98 % Peak Expiratory Flow Rate 305 Estimated Peak Flow Rate [place] Body Weight 115 lb BMI (Body Mass Index) 21.3 kg/m2 Results Description No Information Available Procedures Date Code Description Status 07/25/2021 34128 Office/Outpatient Established Mo d MDM 30-39 Min Completed 11/29/2020 [id number] Mammogram Completed 11/29/2020 [id number] Bone Mineral Density Test Comple sravanthi 03/27/2018 [id number] Colonoscopy Completed Medical Devices Description No Information [...] shoudle r pain. Thank you. Sent [address] [address] [phone]
--- OUTSIDE RECORDS SUMMARY | 2021-09-21 08:11 | CCD | Continuity of Care Document ---
Author Irina Harris M.D. Organization Unknown Address [address] [place] [address] Phone [phone] Care Team Providers Care Soil Scientist Name Role Phone [facility] Yael FOREMAN, Jacquelyn AUTM [phone] Problems Active Problems Provider Date Fibromyalgia Shaw [...] day 90tabs Jeanette Ferrell FNP Calcium 500+D 935-902pf-Koef Table ts 1 tab by mouth twice a day 180tabs Unknown Tumeric 200mg 1 po qd Unknown Immunizations CPT Code Status Date Vaccine Lot # [id number] Given 07/08/2020 Influenza Virus Vaccine, Marcelino drivalent,multidose vial [id number] 09218 Given 08/19/2018 Influenza Virus Vaccine, Marcelino drivalent,multidose vial [id number] Q2038 Given 08/02/2017 Influenza Vaccine (Fluzone)( medicare) [id number] 78961 Given 12/31/2016 Pneumococcal Vaccine [id number] 88690 Given 09/23/2015 Prevnar 13 05884 Given 03/29/2015 Boostrix (Tdap) Tetnus, Diphtheria Toxoids & Acellular Pertussis 66240 Refused 12/30/2015 Zostavax Vital Signs Date Vital Result Comment 07/25/2021 9:44am BP Systolic 113 mmHg BP Diastolic 59 mmHg Heart Rate 74 /min Body Temperature 97.6 F Respiratory Rate 16 /min Height 63 inches 5'3" Weight 107.00 lb O2 % BldC Oximetry 99 % Peak Expiratory Flow Rate 312 Estimated Peak Flow Rate [place] Body Weight 115 lb BMI (Body Mass Index) 19.0 kg/m2 01/18/2021 2:21pm BP Systolic 127 mmHg BP Diastolic 77 mmHg Heart Rate 74 /min Body Temperature 97.4 F Respiratory Rate 17 /min Height 63 inches 5'3" Weight 120.38 lb O2 % BldC Oximetry 98 % Peak Expiratory Flow Rate 305 Estimated Peak Flow Rate [place] Body Weight 115 lb BMI (Body Mass Index) 21.3 kg/m2 Results Description No Information Available Procedures Date Code Description Status 07/25/2021 44049 Office/Outpatient Established Mo d MDM 30-39 Min Completed 11/29/2020 [id number] Mammogram Completed 11/29/2020 [id number] Bone Mineral Density Test Comple sravanthi 03/27/2018 [id number] Colonoscopy Completed Medical Devices Description No Information [...] shoudle r pain. Thank you. Sent [address] [address] [phone]
--- OUTSIDE RECORDS SUMMARY | 2021-09-21 08:11 | CCD | Continuity of Care Document ---
Author Irina Harris M.D. Organization Unknown Address [address] [place] [address] Phone [phone] Care Team Providers Care Box Blank Machine Feeder Name Role Phone [facility] Yael FOREMAN, Jacquelyn AUTM [phone] [facility]M [phone] Problems Active Problems Provider Date Fibromyalgia Shaw [...] day 90tabs Jeanette Ferrell FNP Calcium 500+D 924-019by-Gxre Table ts 1 tab by mouth twice a day 180tabs Unknown Tumeric 200mg 1 po qd Unknown Immunizations CPT Code Status Date Vaccine Lot # [id number] Given 08/08/2021 Influenza Virus Vaccine, Marcelino drivalent,multidose vial [id number] 18113 Given 07/08/2020 Influenza Virus Vaccine, Marcelino drivalent,multidose vial [id number] 93423 Given 08/19/2018 Influenza Virus Vaccine, Marcelino drivalent,multidose vial [id number] Q2038 Given 08/02/2017 Influenza Vaccine (Fluzone)( medicare) [id number] 86221 Given 12/31/2016 Pneumococcal Vaccine [id number] 91564 Given 09/23/2015 Prevnar 13 77208 Given 03/29/2015 Boostrix (Tdap) Tetnus, Diphtheria Toxoids & Acellular Pertussis 99595 Refused 12/30/2015 Zostavax Vital Signs Date Vital Result Comment 08/08/2021 11:45am Body Temperature 97.1 F Height 63 inches 5'3" Peak Expiratory Flow Rate 312 Estimated Peak Flow Rate [place] Body Weight 115 lb 07/25/2021 9:44am BP Systolic 113 mmHg BP Diastolic 59 mmHg Heart Rate 74 /min Body Temperature 97.6 F Respiratory Rate 16 /min Height 63 inches 5'3" Weight 107.00 lb O2 % BldC Oximetry 99 % Peak Expiratory Flow Rate 312 Estimated Peak Flow Rate [place] Body Weight 115 lb BMI (Body Mass Index) 19.0 kg/m2 Results Description No Information Available Procedures Date Code Description Status 07/25/2021 74574 Office/Outpatient Established Mo d MDM 30-39 Min Completed 11/29/2020 [id number] Mammogram Completed 11/29/2020 [id number] Bone Mineral Density Test Comple sravanthi 03/27/2018 [id number] Colonoscopy Completed Medical Devices Description No Information Available Encounters Type Date Location Provider Dx Diagnosis Office Visit 07/25/2021 9:45a Main Office Malena Reese M.D. E 03.9 Hypothyroidism, unspecified Z85.038 Personal history of malignan t neoplasm of large intestine M25.512 Pain in left shoulder L23.89 Allergic contact dermatitis due to other agents J45.30 Mild persistent asthma, unco mplicated Assessments Date Code Description Provider 08/08/2021 Z23 Encounter for immunization Malena Flowers ams, M.D. 07/25/2021 E03.9 Hypothyroidism, unspecified Will Malena lacy [...] to multiple meds. Thank you. Scheduled 12/12/2021 [address] [facility] [address] [facility] [address] [phone] Yael FOREMAN, Jacquelyn Please evaluate for chronic left shoudle r pain. Thank you. Closed 08/02/2021 3 [facility] [address] [place], [place] [address] [phone]
--- OUTSIDE RECORDS SUMMARY | 2021-09-21 08:11 | CCD | Continuity of Care Document ---
Author Irina Harris M.D. Organization Unknown Address [address] [place] [address] Phone [phone] Care Team Providers Care Pyrotechnic Mixer Name Role Phone [facility] AUT[facility] [phone] Yael FOREMAN, Jacquelyn AUTM [phone] Problems Active Problems Provider Date Fibromyalgia Shaw [...] day 90tabs Jeanette Ferrell FNP Calcium 500+D 162-801uq-Bsbc Table ts 1 tab by mouth twice a day 180tabs Unknown Tumeric 200mg 1 po qd Unknown Immunizations CPT Code Status Date Vaccine Lot # [id number] Given 07/08/2020 Influenza Virus Vaccine, Marcelino drivalent,multidose vial [id number] 36089 Given 08/19/2018 Influenza Virus Vaccine, Marcelino drivalent,multidose vial [id number] Q2038 Given 08/02/2017 Influenza Vaccine (Fluzone)( medicare) [id number] 16449 Given 12/31/2016 Pneumococcal Vaccine [id number] 57446 Given 09/23/2015 Prevnar 13 15234 Given 03/29/2015 Boostrix (Tdap) Tetnus, Diphtheria Toxoids & Acellular Pertussis 67942 Refused 12/30/2015 Zostavax Vital Signs Date Vital Result Comment 07/25/2021 9:44am BP Systolic 113 mmHg BP Diastolic 59 mmHg Heart Rate 74 /min Body Temperature 97.6 F Respiratory Rate 16 /min Height 63 inches 5'3" Weight 107.00 lb O2 % BldC Oximetry 99 % Peak Expiratory Flow Rate 312 Estimated Peak Flow Rate [place] Body Weight 115 lb BMI (Body Mass Index) 19.0 kg/m2 01/18/2021 2:21pm BP Systolic 127 mmHg BP Diastolic 77 mmHg Heart Rate 74 /min Body Temperature 97.4 F Respiratory Rate 17 /min Height 63 inches 5'3" Weight 120.38 lb O2 % BldC Oximetry 98 % Peak Expiratory Flow Rate 305 Estimated Peak Flow Rate [place] Body Weight 115 lb BMI (Body Mass Index) 21.3 kg/m2 Results Description No Information Available Procedures Date Code Description Status 07/25/2021 17314 Office/Outpatient Established Mo d MDM 30-39 Min Completed 11/29/2020 [id number] Mammogram Completed 11/29/2020 [id number] Bone Mineral Density Test Comple sravanthi 03/27/2018 [id number] Colonoscopy Completed Medical Devices Description No Information [...] shoudle r pain. Thank you. Sent [address] [address] [phone]
--- OUTSIDE RECORDS SUMMARY | 2021-09-21 08:11 | CCD | Continuity of Care Document ---
Author Irina Harris M.D. Organization Unknown Address [address] [place] [address] Phone [phone] Care Team Providers Care Mortgage Closer Name Role Phone [facility] AUTM [phone] Yael FOREMAN, Jacquelyn AUTM [phone] [facility] AUTM [phone] Problems Active Problems Provider Date Fibromyalgia Shaw [...] day 90tabs Jeanette Ferrell FNP Calcium 500+D 979-668zz-[place] Table ts 1 tab by mouth twice a day 180tabs Unknown Tumeric 200mg 1 po qd Unknown Immunizations CPT Code Status Date Vaccine Lot # 47705 Given 07/08/2020 Influenza Virus Vaccine, Marcelino drivalent,multidose vial [id number] 12619 Given 08/19/2018 Influenza Virus Vaccine, Marcelino drivalent,multidose vial [id number] Q2038 Given 08/02/2017 Influenza Vaccine (Fluzone)( medicare) [id number] 03191 Given 12/31/2016 Pneumococcal Vaccine [id number] 24979 Given 09/23/2015 Prevnar 13 84073 Given 03/29/2015 Boostrix (Tdap) Tetnus, Diphtheria Toxoids & Acellular Pertussis 48065 Refused 12/30/2015 Zostavax Vital Signs Date Vital Result Comment 07/25/2021 9:44am BP Systolic 113 mmHg BP Diastolic 59 mmHg Heart Rate 74 /min Body Temperature 97.6 F Respiratory Rate 16 /min Height 63 inches 5'3" Weight 107.00 lb O2 % BldC Oximetry 99 % Peak Expiratory Flow Rate 312 Estimated Peak Flow Rate [place] Body Weight 115 lb BMI (Body Mass Index) 19.0 kg/m2 01/18/2021 2:21pm BP Systolic 127 mmHg BP Diastolic 77 mmHg Heart Rate 74 /min Body Temperature 97.4 F Respiratory Rate 17 /min Height 63 inches 5'3" Weight 120.38 lb O2 % BldC Oximetry 98 % Peak Expiratory Flow Rate 305 Estimated Peak Flow Rate [place] Body Weight 115 lb BMI (Body Mass Index) 21.3 kg/m2 Results Description No Information Available Procedures Date Code Description Status 07/25/2021 94839 Office/Outpatient Established Mo d MDM 30-39 Min Completed 11/29/2020 [id number] Mammogram Completed 11/29/2020 [id number] Bone Mineral Density Test Comple sravanthi 03/27/2018 [id number] Colonoscopy Completed Medical Devices Description No Information [...] of reaction to multiple meds. Thank you. Sent [address] [facility] [address] [facility] [address] [phone] Yael FOREMAN, Jacquelyn Please evaluate for chronic left shoudle r pain. Thank you. Sent 3 [facility] [address] [place] [address] [phone]
[2021-09-21] MEDS ORDERED: LIDOCAINE 2% 100MG/5ML SDV (FOR ANES.) As Ordered ONE (09:12)
[2021-09-21] MEDS ORDERED: propofoL 200 MG/20 ML VIAL As Ordered ONE (09:12)
--- NOTE | 2021-09-21 09:51 | ROOR ---
Patient Name: Irina Metz Procedure Date: 09/21/2021 9:25 AM Date of : 1945 Age: 75 Room: [facility] Gender: Female Note Status: Finalized Procedure: Colonoscopy Indications: High risk colon cancer surveillance: Personal history of colon cancer Providers: Aaron Moore MD Referring MD: Malena Reese MD Requesting Provider: Medicines: Monitored Anesthesia Care Complications: No immediate complications. Procedure: Pre-Anesthesia Assessment: - The heart rate, respiratory rate, oxygen saturations, blood pressure, adequacy of pulmonary ventilation, and response to care were monitored throughout the procedure. The Colonoscope was introduced through the anus and advanced to the ileocolonic anastomosis. The colonoscopy was performed without difficulty. The patient tolerated the procedure well. The quality of the bowel preparation was good. Findings: The perianal and digital rectal examinations were normal. There was evidence of a prior functional end-to-end ileo-colonic anastomosis at the hepatic flexure. This was patent and was characterized by healthy appearing mucosa. Small Internal Hemorrhoids. The exam was otherwise without abnormality on direct and retroflexion views. Impression: - Patent functional end-to-end ileo-colonic anastomosis, characterized by healthy appearing mucosa. - Small Internal Hemorrhoids. - The examination was otherwise normal on direct and retroflexion views. - No specimens collected. Recommendation: - Repeat colonoscopy in 5 years for surveillance. Procedure Code(s): --- Professional --- 00944, Colonoscopy, flexible; diagnostic, including collection of specimen(s) by brushing or washing, when performed (separate procedure) Diagnosis Code(s): --- Professional --- Z98.0, Intestinal bypass and anastomosis status Z85.038, Personal history of other malignant neoplasm of large intestine CPT copyright 2019 [employer]. All rights reserved. The codes documented in this report are preliminary and upon deicer finisher review may be revised to meet current compliance requirements. Aaron Moore MD Aaron Moore MD 09/21/2021 9:51:08 AM Electronically signed by Aaron Moore MD Number of Addenda: 0 Note Initiated On: 09/21/2021 9:25 AM Estimated Blood Loss: Estimated blood loss: none.
[2021-09-21 10:15] VITALS: BP 125/78
== END 2021-09-21 10:26 | disposition home or self-care (01) ==
LOC: M OPP 08:08
PROVIDERS: ATTEND Internal Medicine Gastroenterology
DX: Z12.11 Encounter for screening for malignant neoplasm of colon (principal); Z85.038 Personal history of other malignant neoplasm of large intestine; K64.8 Other hemorrhoids; Z98.0 Intestinal bypass and anastomosis status; Z88.2 Allergy status to sulfonamides; Z88.5 Allergy status to narcotic agent; Z91.041 Radiographic dye allergy status; Z79.899 Other long term (current) drug therapy

== ENCOUNTER → 2022-01-23 | Outpatient (CLI) | payer MEDICARE, OTHER ==
[~2022-01-23] MED LIST changes: -NS 1,000 ML IV ONE
[2022-01-23 10:48] LABS: ALBUMIN 3.7 GM/DL (3.2-5.2); ALT/SGPT 25 U/L (12-78); BILIRUBIN,TOTAL 0.5 MG/DL (0.2-1.0); BLOOD UREA NITROGEN 17 MG/DL (7-18); CALCIUM LEVEL 9.2 MG/DL (8.8-10.2); CARBON DIOXIDE LEVEL 32 MEQ/L (21-32); CHLORIDE LEVEL 107 MEQ/L (98-107); CHOLESTEROL LEVEL 253 MG/DL (<200); CHOLESTEROL RISK RATIO 2.941 (<5); CREATININE FOR GFR 0.78 MG/DL (0.55-1.30); FREE T4 0.96 NG/DL (0.76-1.46); GLOMERULAR FILTRATION RATE > 60.0 (>39); GLUCOSE, FASTING 75 MG/DL (70-100); HDL CHOLESTEROL 86 MG/DL (>40); LDL CHOLESTEROL 151 MG/DL (<100); NON-HDL-C 167 MG/DL; POTASSIUM SERUM 4.4 MEQ/L (3.5-5.1); SODIUM LEVEL 141 MEQ/L (136-145); TOTAL PROTEIN 6.8 GM/DL (6.4-8.2); TRIGLYCERIDES LEVEL 78 MG/DL (<150)
== END ==
LOC: M LAB 08:28
PROVIDERS: ATTEND Nurse Practitioner Family
DX: E03.9 Hypothyroidism, unspecified (principal)

== ENCOUNTER → 2022-03-14 | Outpatient (CLI) | payer MEDICARE, OTHER ==
[~2022-03-14] MED LIST changes: +CITRACAL MAXIMU1 TAB PO; -CITRTAB16 PO; +LEVAINH
== END ==
LOC: M SOG 10:09
PROVIDERS: ATTEND Orthopaedic Surgery
DX: M25.512 Pain in left shoulder (principal)

== ENCOUNTER 2022-11-15 09:04 | Emergency (ER) | payer MEDICARE, OTHER ==
[~2022-11-15] VITALS: Ht 160 cm; Wt 51.6 kg
[2022-11-15 10:01] LABS: BASO # 0.1 10^3/uL (0.0-0.2); BASO % 0.6 % (0.0-1.0); EOS # 0.1 10^3/uL (0.0-0.5); EOS % 1.1 % (0.0-3.0); HEMATOCRIT 36.9 % (36.0-47.0); HEMOGLOBIN 12.5 g/dl (12.0-15.5); LYMPH # 1.4 10^3/uL (1.5-5.0); LYMPH % 17.3 % (24.0-44.0); MEAN CORPUSCULAR HEMOGLOBIN 33.8 pg (27.0-33.0); MEAN CORPUSCULAR HGB CONC 33.9 g/dl (32.0-36.5); MEAN CORPUSCULAR VOLUME 99.7 fl (80.0-96.0); MONO # 0.6 10^3/uL (0.0-0.8); MONO % 6.8 % (2.0-8.0); NEUTROPHILS % 72.4 % (36.0-66.0); PLATELET COUNT, AUTOMATED 295 10^3/uL (150-450); WHITE BLOOD COUNT 8.3 10^3/uL (4.0-10.0)
[2022-11-15 10:12] LABS: INR 0.87; PROTHROMBIN TIME 12.1 SECONDS (12.5-14.5)
[2022-11-15 10:13] LABS: PARTIAL THROMBOPLASTIN TIME 25.5 SECONDS (24.8-34.2)
[2022-11-15 10:33] LABS: CK-MB VALUE MASS < 1.0 NG/ML (<3.6); LIPASE 31 U/L (12-53)
[2022-11-15 10:35] LABS: ALBUMIN 3.5 G/DL (3.2-5.2); ALKALINE PHOSPHATASE 96 U/L (46-116); ALT/SGPT 20 U/L (7.0-40); AST/SGOT 22 U/L (<34); BILIRUBIN,DIRECT < 0.1 MG/DL (<0.4); BILIRUBIN,TOTAL 0.4 MG/DL (0.3-1.2); BLOOD UREA NITROGEN 17 MG/DL (9-23); CALCIUM LEVEL 9.1 MG/DL (8.3-10.6); CARBON DIOXIDE LEVEL 28 MMOL/L (20-31); CHLORIDE LEVEL 105 MMOL/L (98-107); CREATININE FOR GFR 0.85 MG/DL (0.55-1.30); GLOMERULAR FILTRATION RATE > 60.0 (>39); GLUCOSE, FASTING 78 MG/DL (74-106); SODIUM LEVEL 140 MMOL/L (136-145); TOTAL PROTEIN 6.8 G/DL (5.7-8.2)
[2022-11-15 10:36] LABS: CPK CREATINE PHOSPHOKINASE 45 U/L (34-145); MB/CK RELATIVE INDEX 2.22 (< OR =4)
[2022-11-15 10:37] LABS: THYROID STIMULATING HORMONE 1.814 uIU/ML (0.55-4.78)
[2022-11-15 10:51] LABS: RSV AMPLIFICATION NEGATIVE (NEGATIVE)
[2022-11-15 12:04] LABS: CK-MB VALUE MASS < 1.0 NG/ML (<3.6)
[2022-11-15 12:05] LABS: CPK CREATINE PHOSPHOKINASE 43 U/L (34-145); MB/CK RELATIVE INDEX 2.32 (< OR =4)
[2022-11-15] MEDS ORDERED: PRED20TA PO (13:44)
[2022-11-15 14:00] VITALS: BP 158/73
== END 2022-11-15 14:20 | disposition home or self-care (01) ==
LOC: M ED 09:04
DX: R07.9 Chest pain, unspecified (principal); J45.901 Unspecified asthma with (acute) exacerbation; K58.9 Irritable bowel syndrome, unspecified; Z88.2 Allergy status to sulfonamides; Z88.6 Allergy status to analgesic agent; Z91.041 Radiographic dye allergy status; Z79.810 Long term (current) use of selective estrogen receptor modulators (SERMs)

== ENCOUNTER → 2022-12-14 | Outpatient (CLI) | payer MEDICARE, OTHER ==
[~2022-12-14] MED LIST changes: +MONT-5 PO; +PRED20TA PO; -SING10TA32 PO
== END ==
LOC: M WHC 09:19
PROVIDERS: ATTEND Registered Nurse
DX: Z12.31 Encounter for screening mammogram for malignant neoplasm of breast (principal); M85.851 Other specified disorders of bone density and structure, right thigh; M85.852 Other specified disorders of bone density and structure, left thigh; M85.89 Other specified disorders of bone density and structure, multiple sites

== ENCOUNTER → 2023-05-20 | Outpatient (RCR) | payer MEDICARE, OTHER | LOC: M ST 05-15 10:39 | PROVIDERS: ATTEND Otolaryngology | DX: R49.0 Dysphonia (principal) ==

== ENCOUNTER 2023-05-27 13:04 | Outpatient (RCR) | payer MEDICARE, OTHER | END 2023-06-20 | LOC: M ST 13:04 | PROVIDERS: ATTEND Otolaryngology | DX: R49.0 Dysphonia (principal) ==

== ENCOUNTER → 2024-02-27 | Outpatient (CLI) | payer MEDICARE, OTHER | LOC: M WHC 14:22 | PROVIDERS: ATTEND Nurse Practitioner Family | DX: Z12.31 Encounter for screening mammogram for malignant neoplasm of breast (principal) ==

== ENCOUNTER → 2024-03-13 | Outpatient (REF) | payer MEDICARE, OTHER | LOC: M LAB REF 10:40 | PROVIDERS: ATTEND Physician Assistant Medical | DX: R19.4 Change in bowel habit (principal); E03.9 Hypothyroidism, unspecified ==

== ENCOUNTER → 2024-03-13 | Outpatient (CLI) | payer MEDICARE, OTHER ==
[2024-03-13 11:26] LABS: BASO # 0.1 10^3/uL (0.0-0.2); EOS # 0.1 10^3/uL (0.0-0.5); EOS % 1.6 % (0.0-3.0); HEMATOCRIT 35.6 % (36.0-47.0); HEMOGLOBIN 12.1 g/dl (12.0-15.5); LYMPH # 1.2 10^3/uL (1.5-5.0); LYMPH % 25.1 % (24.0-44.0); MEAN CORPUSCULAR HEMOGLOBIN 34.2 pg (27.0-33.0); MEAN CORPUSCULAR VOLUME 100.6 fl (80.0-96.0); MONO # 0.6 10^3/uL (0.0-0.8); MONO % 11.8 % (2.0-8.0); NEUTROPHILS % 60.5 % (36.0-66.0); PLATELET COUNT, AUTOMATED 214 10^3/uL (150-450); RED BLOOD COUNT 3.54 10^6/uL (4.00-5.40); WHITE BLOOD COUNT 4.9 10^3/uL (4.0-10.0)
[2024-03-13 12:02] LABS: ALBUMIN 3.4 G/DL (3.2-5.2); ALKALINE PHOSPHATASE 90 U/L (46-116); ALT/SGPT 21 U/L (7.0-40); AST/SGOT 17 U/L (<34); BILIRUBIN,TOTAL 0.6 MG/DL (0.3-1.2); BLOOD UREA NITROGEN 15 MG/DL (9-23); CALCIUM LEVEL 9.4 MG/DL (8.3-10.6); CARBON DIOXIDE LEVEL 30 MMOL/L (20-31); CHLORIDE LEVEL 107 MMOL/L (98-107); CREATININE FOR GFR 0.82 MG/DL (0.55-1.30); FREE T4 1.06 NG/DL (0.89-1.76); GLOMERULAR FILTRATION RATE > 60.0 (>39); GLUCOSE, FASTING 81 MG/DL (74-106); POTASSIUM SERUM 4.4 MMOL/L (3.5-5.1); SODIUM LEVEL 141 MMOL/L (136-145); THYROID STIMULATING HORMONE 1.184 uIU/ML (0.55-4.78); TOTAL PROTEIN 6.4 G/DL (5.7-8.2)
== END ==
LOC: M LAB 10:02
PROVIDERS: ATTEND Nurse Practitioner Family
DX: E03.9 Hypothyroidism, unspecified (principal)

== ENCOUNTER → 2024-03-17 | Outpatient (REF) | payer MEDICARE, OTHER | LOC: M LAB REF 09:02 | PROVIDERS: ATTEND Physician Assistant Medical | DX: R19.4 Change in bowel habit (principal) ==